=== PATIENT | female | born 1995 | race Hispanic/Latino ===

== ENCOUNTER 2023-11-11 11:51 | Emergency (ER) | payer SELFPAY ==
--- NOTE | ~2023-11-11 | US_ITS ---
EXAMINATION: US OB follow up DATE: 11/11/2023 16:19 INDICATION: Left lower quadrant pain during first trimester TECHNIQUE: Real-time ultrasound of the pelvis was performed. The interpreting radiologist was not pre sent for the study. COMPARISON: None. FINDINGS: There is a single living fetus in breech presentation. The placenta is anterior. heart rate is 148 beats per minute (bpm). The amniotic fluid volume is subjectively normal. The left ovary measure s 2.3 x 1.5 x 2.4 cm with vascular flow evident on color Doppler. The right ovary is not visualized. The following biometric data were obtained: CRL: 8.9 cm -> 14 weeks 5 days BPD: 2.7 cm -> 14 weeks 5 days Head circumference: 9.6 cm -> 14 weeks 3 days Abdominal circumference: 8.5 cm -> 14 weeks 5 days Femur length: 1.5 cm -> 14 weeks 3 days These measurements are concordant. Head circumference to abdominal circumference ratio: 1.13 (normal range 1.06-1.38). Estimated weight: 102 g (+/-) 15 g or 4 oz. (+/-) 1 oz. IMPRESSION: 1. Single living fetus in breech presentation with heart rate of 148 bpm. 2. Gestational age by ultrasound of 14 weeks 5 day(s) +/- 1 week(s) 2 day(s) with ultrasound estimate d date of delivery (NORAH) of 05/06/2024. Reviewed, dictated and finalized at location A. IMPRESSION: 1. Single living fetus in breech presentation with heart rate of 148 bpm. 2. Gestational age by ultrasound of 14 weeks 5 day(s) +/- 1 week(s) 2 day(s) wi th ultrasound estimated date of delivery (NORAH) of 05/06/2024.
[2023-11-11 12:07] VITALS: BP 111/75; PULSE 95; RESP 14; TEMP 36.6; O2SAT 98
[2023-11-11 12:30] LABS: BEDSIDEPREGUCG Positive
[2023-11-11 12:42] LABS: Basophils Percent Auto 0.2 % (0.2-1.2); Eosinophils Absolute Auto 0.1 K/mm3 (0-0.3); Eosinophils Percent Auto 0.5 % (0-4.4); Hematocrit 36.9 % (37.0-47.0); Hemoglobin 12.6 g/dL (12.0-15.0); Immature Granulocyte Absolute 0.02 K/mm3 (0.00-0.031); Immature Granulocyte Percent A 0.2 % (0-0.5); Immature Platelet Fraction Pct 6.5 % (0.9-11.2); Lymphocytes Absolute Auto 1.81 K/mm3 (0.9-3.2); Lymphocytes Percent Auto 19.2 % (18.3-44.2); Mean Corpuscular HGB Conc 34.1 g/dl (32-36); Mean Corpuscular Hemoglobin 29.9 pg (26-34); Mean Corpuscular Volume 87.4 fl (80-100); Mean Platelet Volume 10.8 fl (7.4-10.4); Monocytes Absolute Auto 0.9 K/mm3 (0.1-0.6); Monocytes Percent Auto 9.1 % (2.6-8.5); Neutrophils Absolute Auto 6.7 K/mm3 (1.3-6.7); Neutrophils Percent Auto 70.8 % (45.5-73.1); Platelet Count Result 280 k/mm3 (150-375); Red Blood Count 4.22 M/mm3 (4.2-5.4); Red Cell Distribution Width 14.4 % (11.5-14.5); White Blood Count 9.5 K/mm3 (4.5-10.0)
[2023-11-11 12:48] LABS: Bacteria Urine None Seen /hpf; Non Pathogenic Casts 0-2; RBC Urine 0-2 /hpf (0-2); Squamous Epithelial Cell Urine Occasional /hpf (Few); WBC Urine 0-5 /hpf (0-3)
[2023-11-11 12:54] LABS: Appearance Urine Clear (Clear); Bilirubin Urine Negative (Negative); Blood Urine Trace-intact (Negative); Color Urine Yellow (Yellow); Glucose Urine UA 2+ mg/dL (Negative); Ketones Urine Negative (Negative); Nitrate Urine Negative (Negative); Protein Urine Negative (Negative)
[2023-11-11 12:55] LABS: Add Urine Microscopic? NO; Leukocyte Esterase Ur Negative LEU/UL (Negative); Urobilinogen Urine 0.2 mg/dL (<2.0)
[2023-11-11 13:29] LABS: Alanine Aminotransferase 28 U/L (6-35); Alkaline Phosphatase 105 U/L (38-126); Anion Gap 10 mmol/L (4-12); Aspartate Amino Transferase 31 U/L (14-36); Bilirubin,Total 0.2 mg/dL (0.2-1.3); Blood Urea Nitrogen 3 mg/dL (7-17); Calcium 8.8 mg/dL (8.4-10.2); Carbon Dioxide 21 mmol/L (22-30); Chloride 105 mmol/L (98-107); Estimated Glomerular Filt Rate > 60; Glucose 98 mg/dL (65-110); Lipase 62 U/L (23-300); Potassium 3.2 mmol/L (3.4-5.0); Sodium 136 mmol/L (137-145)
--- NOTE | 2023-11-11 13:38 | ED.ABDPAIN ---
HPI - Abdominal Pain General Chief Complaint: Abdominal Pain Stated Complaint: left side abd pain, pain with urination Time Seen by Provider: 11/11/23 13:12 Source: patient and other (patient initially presents with son but does elect for him to step out during HPI and use functional support analyst) Mode of arrival: ambulatory Limitations: language barrier (Barbadian speaking; language intepreter intiially used Nilsa #[id number] though with significant delay/lag) History of Present Illness HPI narrative: This is a 89 (history of twins followed by a brewer after) presents with left-sided abdominal pain located at the intersection between her left upper quadrant and left lower quadrant. She notes that she has also been having some dysuria for approximately 1 month. She notes that the pain radiates to back. She tried calling the clinic where she takes her children for care though she has not yet established as a patient there but she could not be seen there today. Patient states her last menstrual period was in September and was noted to be light. She denies any other vaginal discharge or bleeding. Denies any history of sexually transmitted infection. She had previously been trialing ibuprofen. Her left elbow was this morning and she does note she has been intermittently constipated. Denies any nausea, vomiting, fevers. Last oral intake was yesterday approximately 4:00 p.m. Related Data Allergies Allergy/AdvReac Type Severity Reaction Status Date / Time No Known Allergies Allergy Verified 11/11/23 11:53 PMFSH Past Medical History Medical History History of premature delivery x2 births (one twins, one brewer) History of twin in prior Social History Social History Social History: Barbadian speaking Living arrangements: with family Exam Narrative: GENERAL: Well-appearing, well-nourished, and in no acute distress. HEAD: Normocephalic, atraumatic. EYES: Non injected, non icteric ENT: Nares clear, no rhinorrhea or epistaxis. NECK: Supple. CHEST: Speaking in full sentences. No respiratory distress. HEART: Regular rate and rhythm. . ABDOMEN: Soft, nondistended. No tenderness to palpation x4 quadrants. No rigidity or guarding. Not peritoneal. EXTREMITIES: Normal range of motion. No lower extremity edema. SKIN: Warm, dry, no rash. NEURO: No focal deficits. Alert and oriented x3. PSYCH: Normal mood and affect. Course Vital Signs Vital signs: Vital Signs Temperature 97.9 F 11/11/23 12:07 Pulse Rate 95 11/11/23 12:07 Respiratory Rate 14 11/11/23 12:07 Blood Pressure 111/75 11/11/23 12:07 Pulse Oximetry 98 11/11/23 12:07 Oxygen Delivery Room Air 11/11/23 12:07 Temperature 98.1 F 11/11/23 15:51 Pulse Rate 95 11/11/23 15:51 Respiratory Rate 14 11/11/23 12:07 Blood Pressure 133/83 11/11/23 15:51 Pulse Oximetry 100 11/11/23 15:51 Oxygen Delivery Room Air 11/11/23 12:07 MDM - Abdominal Pain MDM Narrative Medical decision making narrative: This is a 28-year-old female (previous twins followed by brewer, all premature deliveries). Who presents with left-sided abdominal pain as well as reported dysuria occurring approximately 1 month. Pain radiates to her back. In the emergency department they are afebrile with vital signs within normal limits. Patient is noted to have a positive test. She is informed of this finding via [employer] text service privately so family can not see as she had desired. Patient did not know she was although her last menstrual period had been September was reportedly light. Given uncertain status of intrauterine versus ectopic versus miscarriage, will proceed with ultrasound imaging. Hypokalemia will be repleted. No bacteria in urinalysis. US shows 2nd trimester fetus. The Engl
[2023-11-11] MEDS: POTASSIUM BICARBONATE 25 MEQ TABEF 50 MEQ PO (14:07)
[2023-11-11 15:19] LABS: Trichomonas Vag PCR NOT DETECTED (NOT DETECTE)
[2023-11-11 15:43] LABS: Chlamydia trachomatis NOT DETECTED (NOT DETECTE); Neisseria gonorrhoeae PCR NOT DETECTED (NOT DETECTE)
[2023-11-11] MEDS: ACETAMINOPHEN 500 MG TABLET 1000 MG PO (15:46)
[2023-11-11 15:51] VITALS: BP 133/83; PULSE 95; TEMP 36.7; O2SAT 100
== END 2023-11-11 17:15 | disposition home or self-care (01) ==
PROVIDERS: Emergency Provider Student in an Organized Health Care Education/Training Program
DX: O26.892 Other specified pregnancy related conditions, second trimester (principal); R10.9 Unspecified abdominal pain; Z3A.14 14 weeks gestation of pregnancy
CPT/HCPCS: 36415; 76816; 80053; 81003; 81025; 83690; 84702; 85025; 85055; 87491; 87591; 87661; 99284; A9270

== ENCOUNTER 2024-03-05 20:12 | Observation (INO) | payer OTHER, SELFPAY ==
[2024-03-05 20:31] VITALS: BP 126/82; PULSE 83
--- NOTE | 2024-03-05 20:45 | OBADM ---
This patient, Deepa Gurrola, admitted to the OB room OB Post 117 for observation. Patient/family oriented to hospital policies and general routines including ID bracelet, bed and alarms, visiting hours, pain management, procedures, bathroom and other care routines, personal items, smoking policy, room service/diet, and visiting hours. Patient/Family are encouraged to report perceived risks to care and to ask questions if they do not understand what they are told or what they should do.
[2024-03-05 21:00] VITALS: TEMP 36.1
[2024-03-05 21:02] VITALS: BP 117/74; PULSE 84
[2024-03-05 21:13] LABS: Add Urine Microscopic? YES; Appearance Urine Cloudy (Clear); Bacteria Urine None Seen /hpf; Bilirubin Urine Negative (Negative); Blood Urine Negative (Negative); Color Urine Yellow (Yellow); Glucose Urine UA Negative (Negative); Ketones Urine Negative (Negative); Leukocyte Esterase Ur 1+ LEU/UL (Negative); Nitrate Urine Negative (Negative); Non Pathogenic Casts 0-2; Protein Urine Trace mg/dL (Negative); RBC Urine 0-2 /hpf (0-2); Specific Grav Ur 1.012 (1.001-1.035); Squamous Epithelial Cell Urine Occasional /hpf (Few); Urobilinogen Urine 0.2 mg/dL (<2.0)
[2024-03-05 21:31] VITALS: BP 111/71; PULSE 82
--- NOTE | 2024-03-14 14:46 | PM.OBTRLD ---
OB - Triage/Final Diagnosis Visit Information Reason for evaluation: threatened labor Comments/Additional reasons for admission: I have assessed the risk for this patient, Deepa Gurrola, and determined that she would benefit from observation care. Evaluation Laboratory results: Laboratory Tests 03/05/24 20:59 Urine Color Yellow Urine Appearance Cloudy H Urine pH 6.0 Ur Specific [place] 1.012 Urine Protein Trace Urine Glucose (UA) Negative Urine Ketones Negative Ur Blood (Man) Negative Urine Nitrate Negative Urine Bilirubin Negative Urine Urobilinogen 0.2 Leukocyte Esterase Rfl 1+ H Urine RBC 0-2 Urine WBC 6-10 H Ur Squamous Epith Cells Occasional Urine Bacteria None seen Urine Casts 0-2
== END 2024-03-05 21:55 | disposition home or self-care (01) ==
PROVIDERS: Admitting Provider Obstetrics & Gynecology; Visit Provider Obstetrics & Gynecology
DX: O47.03 False labor before 37 completed weeks of gestation, third trimester (principal); Z3A.31 31 weeks gestation of pregnancy
CPT/HCPCS: 81001; 87086; G0378; G0379

== ENCOUNTER 2024-04-06 09:46 | Inpatient (IN) | payer OTHER, SELFPAY ==
[2024-04-06] VITALS (61 sets, daily range): BP systolic 121–157; BP diastolic 67–91; PULSE 68–92; RESP 14–16; TEMP 36.6–37.2; O2SAT 94–100; BMI 34.9
--- OUTSIDE RECORDS SUMMARY | 2024-04-06 10:56 | XMS_ITS | Clinical Summary ---
Author Organization [facility] Address [address] [place] [address] Care Team Providers Care Nitro Worker Name Role Phone Nathan Broderick Primary Care Provider [phone] Encounters Date Type Department Care Team Description 03/12/2024 10:46 AM INSPECTOR AND UNLOADER - 03/12/2024 11:59 PM INSPECTOR AND UNLOADER [facility] Ul[facility]ound [address] [place] [address] Nathan Broderick Discharge Disposition: Discharged to home or Selfcare 03/12/2024 Travel 02/28/[address] [facility] Central Scheduling [address] [place] [address] Nathan Broderick Encounter for supervision of normal in third trimester, unspecified (Primary Dx) from Last 3 Months Social History Tobacco Use Types Packs/Day Years Used Date Smoking Tobacco: Never Assessed Comments Unknown Sex and Gender Information Value Date Recorded Sex Assigned at Not on file Legal Sex Female 7:51 AM INSPECTOR AND UNLOADER Gender Identity Not on file Sexual Orientation Not on file Plan of Treatment Health Maintenance Due Date Last Done Comments Hepatitis C Virus (HCV) Screening 1993 Hepatitis B Immunization (1 of 3 - 19+ 3-dose series) 2012 Pap Smear 2014 Cervical Cancer Screening (CCS) 08/15/2023 HPV/Cotest 08/15/2023 Influenza Immunization (#1) 2023 SARS-COV-2 Immunization ( season) 2023 07/13/2020, 06/15/2020 Respiratory Syncytial Virus (RSV) Immunization (Adult) (1 - 1-dose 75+ series) 2068 TdaP Immunization Completed 02/11/2024 Meningococcal Immunization (ACWY) Aged Out No longer eligible b ased on patient's age to complete this topic Pneumococcal Immunization Combined Aged Out No longer eligible b ased on patient's age to complete this topic Rotavirus Immunization Aged Out No lo nger eligible based on patient's age to complete this topic Procedures Procedure Name Priority Date/Time Associated Diagnosis Comments US PREG UTRS> 14 WKS EA SGL FETS & MOM EVAL Routine 03/12/2024 11:43 AM INSPECTOR AND UNLOADER Encounter for supervision of normal in third trimester, unspecified from Last 3 Months Results * US PREG UTRS> 14 WKS EA SGL FETS & MOM EVAL (03/12/2024 11:43 AM INSPECTOR AND UNLOADER) Anatomical Region Laterality Modality OB N/A Ultrasound 03/16/2024 10:2 4 AM INSPECTOR AND UNLOADER Impressions 03/16/2024 10:27 AM INSPECTOR AND UNLOADER IMPRESSION: Single live intrauterine gestation estimated at 32 weeks 1 day by this ultrasound. Limited anatomic survey due to gestational age. Narrative 03/16/2024 10:27 AM INSPECTOR AND UNLOADER EXAM DESCRIPTION: ?? US PREG UTRS> 14 WKS EA SGL FETS and MOM EVAL REASON FOR STUDY: ?? survey TECHNIQUE: Complete ??transabdominal ??obstetric ultrasound was performed. COMPARISON: ?? None available FINDINGS: number: ?? single Presentation: ?? Cephalic Gestational age by this ultrasound: ?? 32 weeks 1 day , EDC ?? 05/06/2024 Clinical gestation: ?? N/A , Estimated weight: ?? 1829 g , Percentile ??27th Placenta location: ?Anterior Placenta-previa: ?? no Cervical length: ?? Long and closed ??cm heart rate: ?? 144 ??bpm Amniotic fluid index: ?? 8.3 ??cm S = Seen without gross abnormality A = Abnormal NC = Not clearly seen NS = Not seen on current exam PS = Previously seen anatomic survey: Limited due to gestational age Intracranial anatomy: ?? NS Nose/lips: ?? S Spine: ?? NC Four-chamber heart: ?? NC Diaphragm: ?? S Stomach: ?? S Kidneys: ?? S Bladder: ?? S 3-vessel cord: ?? NC cord insertion: ?? NS Upper extremities: ?? NS Lower extremities: ?? S measurements: Biparietal diameter: ?? 7.98 ??cm ( 32 weeks 1 day ) Head circumference: ?? 30.16 ??cm ( 33 weeks 4 days ) Abdominal circumference: ?? 28.31 ??cm ( 32 weeks 3 days ) Femur length: ?? 5.74 ??cm ( 30 weeks 1 day ) Ratios: FL/AC: ?? 20 ??(20-24) HC/AC: ?? 1.07 ?? THIS IS AN ELECTRONICALLY VERIFIED FINAL REPORT 03/16/2024 10:24 AM - Electronically signed by ??Kristina Major M.D. AB: AB D: ??03/16/2024 10:24 AM T: ??03/16/2024 10:24 AM Report ID: [id number] Reading Location: ??[id number] Procedure Note Kristina Major MD - 03/16/2024 EXAM DESCRIPTION: US PREG UTRS> 14 WKS EA SGL FETS and MOM EVAL REASON FOR STUDY: survey TECHNIQUE: Complete transabdominal obstetric ultrasound was performed. COMPARISON: None available FINDINGS: number: single Presentation: Cephalic Gestational age by this ultrasound: 32 weeks 1 day , EDC 05/06/2024 Clinical gestation: N/A , Estimated weight: 1829 g , Percentile 27th Placenta location: Anterior Placenta-previa: no Cervical length: Long and closed cm heart rate: 144 bpm Amniotic fluid index: 8.3 cm S = Seen without gross abnormality A = Abnormal NC = Not clearly seen NS = Not seen on current exam PS = Previously seen anatomic survey: Limited due to gestational age Intracranial anatomy: NS Nose/lips: S Spine: NC Four-chamber heart: NC Diaphragm: S Stomach: S Kidneys: S Bladder: S 3-vessel cord: NC cord insertion: NS Upper extremities: NS Lower extremities: S measurements: Biparietal diameter: 7.98 cm ( 32 weeks 1 day ) Head circumference: 30.16 cm ( 33 weeks 4 days ) Abdominal circumference: 28.31 cm ( 32 weeks 3 days ) Femur length: 5.74 cm ( 30 weeks 1 day ) Ratios: FL/AC: 20 (20-24) HC/AC: 1.07 THIS IS AN ELECTRONICALLY VERIFIED FINAL REPORT 03/16/2024 10:24 AM - Electronically signed by Kristina Major M.D. AB: AB Report ID: [id number] Reading Location: [id number] IMPRESSION: Single live intrauterine gestation estimated at 32 weeks 1 day by this ultrasound. Limited anatomic survey due to gestational age. us Nathan Broderick IMG US OB Final Result from Last 3 Months Insurance MEDICAID [place] Care Teams Nitro Worker Relationship Specialty Start Date End Date Nathan Broderick [address] [place] [address] , [address] [address] PCP - General Obstetrics & Gynecology 03/12/24
--- OUTSIDE RECORDS SUMMARY | 2024-04-06 10:56 | XMS_ITS | Continuity of Care Document ---
Author Organization [facility] Address [address] [place] [address] Phone Care Team Providers Care Associate Professor Of [employer] Name Role Phone Angie Cobian MD Unavailable Unavailable Allergies, Adverse Reactions, Alerts Substance Reaction Status Criticality No Known Allergies Active No Inform ation Medications Medication Instructions Dosage Effective Dates (start - stop) Status Comments Calcium 600 600 mg calcium (1,500 mg) tablet take 1 tablet daily - Active Depo-Provera 150 mg/mL intramuscular syringe inject 1 milliliter by intramuscular route every 3 months 150 MG - Active Procedures Procedure Date Voided Charges URINE TEST OFFICE/OUTPATIENT VISIT, EST Depo Provera 150 Mg URINE TEST OFFICE/OUTPATIENT VISIT, EST Depo Provera 150 Mg Depo Provera 150 Mg ELECTROCARDIOGRAM, COMPLETE OFFICE/OUTPATIENT VISIT, EST URINE TEST Depo Provera 150 Mg Depo Provera 150 Mg OFFICE/OUTPATIENT VISIT, EST URINE TEST OFFICE/OUTPATIENT VISIT, EST Depo Provera 150 Mg OFFICE/OUTPATIENT VISIT, EST URINE TEST Depo Provera 150 Mg OFFICE/OUTPATIENT VISIT, EST URINE TEST OFFICE/OUTPATIENT VISIT, EST Depo Provera 150 Mg Depo Provera 150 Mg URINE TEST OFFICE/OUTPATIENT VISIT, EST Depo Provera 150 Mg Depo Provera 150 Mg Depo Provera 150 Mg Depo Provera 150 Mg URINE TEST Depo Provera 150 Mg Depo Provera 150 Mg OFFICE/OUTPATIENT VISIT, EST URINE TEST Depo Provera 150 Mg Depo Provera 150 Mg OFFICE/OUTPATIENT VISIT, EST URINE TEST OFFICE/OUTPATIENT VISIT, EST Depo Provera 150 Mg Depo Provera 150 Mg HEPATIC FUNCTION PANEL ROUTINE VENIPUNCTURE URINE TEST OFFICE/OUTPATIENT VISIT, EST Depo Provera 150 Mg ROUTINE VENIPUNCTURE HEPATIC FUNCTION PANEL OFFICE/OUTPATIENT VISIT, EST Depo Provera 150 Mg HEPATIC FUNCTION PANEL ROUTINE VENIPUNCTURE URINE TEST Voided Charges Periodontal Scaling And Root Planing Four Or Mor Patient Education Patient Summary Nutrition Assessment 015 URINE TEST Visit (1) Depo Provera 150 Mg ROUTINE VENIPUNCTURE Nutrition Assessment 015 HEMOGLOBIN Health Education Health Education ROUTINE VENIPUNCTURE URINALYSIS DIPSTICK NONAUTO W/O SCOPE Ja ANTEPARTUM CARE ONLY 7+ Visits 15 Follow Up Anterpartum Psychosocial URINALYSIS DIPSTICK NONAUTO W/O SCOPE Ja HEMOGLOBIN GLUCOSE TEST, BLOOD QUANT ANTEPARTUM CARE ONLY 4 To 6 Visits Follow Up Antepartum Nutrition 15 Follow Up Anterpartum Psychosocial Antepartum Visit (8) Third Trimester Of URINALYSIS DIPSTICK NONAUTO W/O SCOPE Ja ANTEPARTUM CARE ONLY 4 To 6 Visits Follow Up Anterpartum Psychosocial URINALYSIS DIPSTICK NONAUTO W/O SCOPE De c ANTEPARTUM CARE ONLY 4 To 6 Visits Follow Up Anterpartum Psychosocial URINALYSIS DIPSTICK NONAUTO W/O SCOPE De TB INTRADERMAL TEST Initial Psychosocial 15 Min Comprehensive Oral Evaluatio n New Or Established Patient Education Bitewings Two Radiographic Images Intraoral Periapical First Radiographic Image Intraoral Periapical Each Additional Radiographic Image Patient Summary Initial Psychosocial 15 Min Initial Health Ed Assess Each 15 Min Feb URINALYSIS DIPSTICK NONAUTO W/O SCOPE De ANTEPARTUM CARE ONLY 7+ Visits 14 IMMUNIZATION ADMIN TDAP VACCINE >7 IM IMMUNIZATION ADMIN, EACH ADD FLU VACCINE 4VAL NO PRESERV 3 & > Antepartum Visit (8) Initial Psychosocial 15 Min Initial Health Ed Assess Each 15 Min Jan ROUTINE VENIPUNCTURE Follow Up Antepartum Nutrition 14 URINALYSIS DIPSTICK NONAUTO W/O SCOPE Oc Initial Health Ed Assess Each 15 Min Dec Initial Health Ed Assess Each 15 Min Dec URINALYSIS DIPSTICK NONAUTO W/O SCOPE Oc Follow Up Antep Health Ed 15 Min 2013 GLUCOSE TEST, BLOOD QUANT Follow Up Antep Health Ed 15 Min 2013 Initial Nutrition Assesment 30min Initial Psychosocial 30 Min GLUCOSE TEST, BLOOD QUANT ANTEPARTUM CARE ONLY 4 To 6 Visits Initial Antepartum Visit (1) Initial Health Education 1st 30 Min Initial Psychosocial 30 Min URINE TEST Client Orientation [facility] Advance Directives Directive Yes / No Effective Date File Name No Information Encounters Encounter Description Practice Location Reason(s) For Visit Diagnoses Date Provider Providers Copied on Encounter [facility], [address] [place] [address], [address], [place] tel: [phone] [facility] void visit (chief complaint) No Information 8 Aranza Adams. [address] [place] [address], [id number] , [place]. tel: [phone] OFFICE/OUTPA TIENT VISIT, EST [facility] [address], [address], [place] tel: [phone] [facility] DEPO (chief complaint) Encounter for surveillance of injectable contraceptive 7 Taras Logan. [address] [place] [address], [id number] , [place]. tel: [phone] Referring Provider: Angie Cobian, [address] [place] [address], [id number]. tel:[phone] OFFICE/OUTPA TIENT VISIT, EST [facility] [address], [address], [place] tel: [phone] [facility] Depo Injection (chief complaint) Encounter for surveillance of injectable contraceptive 7 Estephania Kaiser. [address] [place] [address], [id number] , [place]. tel: [phone] Referring Provider: Angie Cobian, [address] [place] [address], [id number]. tel:[phone] OFFICE/OUTPA TIENT VISIT, EST [facility] [address] [place], [address], [place] tel: [phone] [facility] Chest pain (chief complaint) Muscle strain of anterior chest wall 7 Jluisannel Michel. [address] [place], [place], [id number] . tel: [phone] OFFICE/OUTPA TIENT VISIT, EST [facility], [address] [place] [address], [address], [place] tel: [phone] [facility] depo (chief complaint) Encounter for surveillance of injectable contraceptive 7 Gunnar Hull. [address] [place], [address]. tel: [phone] OFFICE/OUTPA TIENT VISIT, EST [facility], [address] [place] [address], [address], [place] tel: [phone] [facility] depo (chief complaint) Encounter for surveillance of injectable contraceptive 7 Gunnar Hull. [address] [place], [address]. tel: [phone] Referring Provider: Angie Cobian, [address] [place] [address], [id number]. tel:[phone] OFFICE/OUTPA TIENT VISIT, EST [facility], [address] [place] [address], [address], [place] tel: [phone] [facility] PAP test (chief complaint) Encounter for surveillance of injectable contraceptivePap smear for cervical cancer screeningScreening for breast cancerNormal gynecologic examination 7 Gunnar Hull. [address] [place], [address]. tel: [phone] Referring Provider: Angie Cobian [address] [place] [address], [id number]. tel:[phone] OFFICE/OUTPA TIENT VISIT, EST [facility], [address] [place] [address], [address], [place] tel: [phone] [facility] DEPO (chief complaint) Encounter for surveillance of injectable contraceptive 7 Gunnar Hull. [address] [place], [address]. tel: [phone] Referring Provider: Angie Cobian, [address] [place], [place], [id number]. tel:[phone] OFFICE/OUTPA TIENT VISIT, EST [facility], [address] [place] [address], [address], [place] tel: [phone] [facility] DEPO (chief complaint) Encounter for surveillance of injectable contraceptive 6 Aranza Adams. [address], [place], [id number] , [place]. tel: [phone] OFFICE/OUTPA TIENT VISIT, EST [facility], [address] [place] [address], [address], [place] tel: [phone] [facility] depo (chief complaint) Encounter for surveillance of injectable contraceptive 6 Aranza Adams. [address], [place], [id number] , [place]. tel: [phone] OFFICE/OUTPA TIENT VISIT, EST [facility], [address] [place] [address], [address], [place] tel: [phone] [facility] DEPO (chief complaint) Encounter for surveillance of injectable contraceptive 6 Daguidylan Quigley. [address] [place], [address], [place]. tel: [phone] OFFICE/OUTPA TIENT VISIT, EST [facility], [address] [place] [address], [address], [place] tel: [phone] [facility] DEPO (chief complaint) Encounter for surveillance of injectable contraceptive 6 Michael Gilbert. [address] [place], [address], [place]. tel: [phone] OFFICE/OUTPA TIENT VISIT, EST [facility], [address] [place] [address], [address], [place] tel: [phone] [facility] DEPO (chief complaint) Encounter for surveillance of injectable contraceptive 5 Aranza Adams. [address] [place] [address], [id number] , [place]. tel: [phone] [facility], [address] [place] [address], [address], [place] tel: [phone] [facility] Labs (chief complaint) Nonspecific reaction to skin test w/o active tuberculosis 5 Aranza Adams. [address] [place] [address], [id number] , [place]. tel: [phone] Consulting Provider: Monson Tima, [address] [place] [address], [address]. tel: [phone] OFFICE/OUTPA TIENT VISIT, EST [facility], [address] [place] [address], [address], [place] tel: [phone] [facility] Depo (chief complaint) Contraceptive surveillance, unspecified 5 Aranza Adams. [address] [place] [address], [id number] , [place]. tel: [phone] [facility], [address] [place] [address], [address], [place] tel: [phone] [facility] labs (chief complaint) No Information 5 Aranza Adams. [address] [place] [address], [id number] , [place]. tel: [phone] Consulting Provider: [facility], [address] [place] [address], [address]. tel:[phone] OFFICE/OUTPA TIENT VISIT, EST [facility], [address] [place] [address], [address], [place] tel: [phone] [facility] depo (chief complaint) Contraceptive surveillance, unspecified 5 Aranza Adams. [address] [place] [address], [id number] , [place]. tel: [phone] [facility], [address] [place] [address], [address], [place] tel: [phone] [facility] No Information 5 Aranza Adams. [address] [place] [address], [id number] , [place]. tel: [phone] Consulting Provider: Thomas Alfred, [address] [place] [address], [address]. tel: [phone] [facility], [address] [place] [address], [address], [place] tel: [phone] [facility] Dental examination 5 Manuel Vincent. [address] [place] [address], [id number] , [place]. tel: [phone] [facility] [address], [address], [place] tel: [phone] [facility] CPSP (chief complaint) Supervision of other normal 5 Aranza Adams. [address] [place] [address], [id number] , [place]. tel: [phone] Consulting Provider: Izzy Olson, [address] [place] [address], [address]. tel: [phone] [facility], [address], [place] tel: [phone] [facility] PP check C-Sec 04/02/14 (chief complaint) Routine follow-upEncounter for counseling regarding initiation of other contraceptive measureLTBI (latent tuberculosis infection) 5 Aranza Adams. [address] [place] [address], [id number] , [place]. tel: [phone] [facility] [address], [address], [place] tel: [phone] [facility] CPSP (chief complaint) Routine follow-up 5 Aranza Adams. [address] [place] [address], [id number] , [place]. tel: [phone] Consulting Provider: Izzy Olson, [address] [place] [address], [address]. tel:[phone] [facility], [address] [place] [address], [address], [place] tel: [phone] [facility] CPSP (chief complaint) Routine follow-up 5 Aranza Adams. [address] [place] [address], [id number] , [place]. tel: [phone] Consulting Provider: Izzy Olson, [address] [place] [address], [address]. tel:[phone] [facility], [address] [place] [address], [address], [place] tel: [phone] [facility] wound check (chief complaint) Encounter for post surgical wound checkEncounter for visit 5 Gill Esterlita . [address] [place] [address], [address], [place]. tel: [phone] [facility], [address] [place] [address], [address], [place] tel: [phone] [facility] labs (chief complaint) No Information 5 Aranza Adams. [address] [place] [address], [id number] , [place]. tel: [phone] Consulting Provider: [facility], [address] [place] [address], [address]. tel:[phone] [facility], [address] [place] [address], [address], [place] tel: [phone] [facility] Proteinuria affecting , antepartum 5 Gill Esterlita . [address] [place] [address], [address], [place]. tel: [phone] [facility], [address] [place] [address], [address], [place] tel: [phone] [facility] AnemiaGlucosuria 5 Gill Esterlita . [address] [place], [address], [place]. tel: [phone] [facility], [address] [place] [address], [address], [place] tel: [phone] [facility] CPSP (chief complaint) Supervision of other normal 5 Aranza Adams. [address], [place], [id number] , [place]. tel: [phone] Consulting Provider: Izzy Olson, [address] [place] [address], [address]. tel:[phone] [facility], [address] [place] [address], [address], [place] tel: [phone] [facility] [place] [facility] Follow up (chief complaint) TOLAC (chief complaint) Supervision of other normal 5 Bernabe Weiss. [address] [place] [address], [id number] , [place]. tel: [phone] [facility], [address] [place] [address], [address], [place] tel: [phone] [facility] Previous section 4 Gill Esterlita . [address] [place], [address], [place]. tel: [phone] [facility], [address] [place] [address], [address], [place] tel: [phone] [facility] Previous sectionScreening examination for pulmonary tuberculosis 4 Gill Esterlita . [address] [place], [address], [place]. tel: [phone] [facility], [address] [place] [address], [address], [place] tel: [phone] [facility] CPSP (chief complaint) Screening examination for pulmonary tuberculosis 4 Shirrell Angie. [address], [place], [id number] , [place]. tel: [phone] Consulting Provider: Izzy Olson, [address] [place] [address], [address]. tel: [phone] [facility], [address] [place] [address], [address], [place] tel: [phone] [facility] Dental examination 4 Manuel Vincent. [address], [place], [id number] , [place]. tel: [phone] [facility], [address] [place] [address], [address], [place] tel: [phone] [facility] CPSP (chief complaint) Supervision of other normal 4 Aranza Adams. [address] [place] [address], [id number] , [place]. tel: [phone] Consulting Provider: Izzy Olson, [address] [place] [address], [address]. tel: [phone] [facility], [address] [place] [address], [address], [place] tel: [phone] [facility] Supervision of other normal pregnancyPrevious section 4 Jairo Odell . [address] [place] [address], [address], [place]. tel: [phone] [facility], [address] [place] [address], [address], [place] tel: [phone] [facility] CPSP (chief complaint) Supervision of other normal 4 Aranza Adams. [address] [place] [address], [id number] , [place]. tel: [phone] Consulting Provider: [place], [address]. tel: [phone] [facility], [address] [place] [address], [address], [place] tel: [phone] [facility] CPSP (chief complaint) Supervision of other normal Jan-0 5201 4 Aranza Adams. [address], [place], [id number] , [place]. tel: [phone] Consulting Provider: Izzy Olson, [address] [place] [address], [address]. tel:[phone] [facility], [address] [place] [address], [address], [place] tel: [phone] [facility] Supervision of other normal Dec-3 201 4 Gill Esterlita . [address] [place], [address], [place]. tel: [phone] [facility] [address], [address], [place] tel: [phone] [facility] CPSP (chief complaint) Supervision of other normal Dec- 6 4 Aranza Adams. [address], [place], [id number] , [place]. tel: [phone] Consulting Provider: Izzy Olson, [address] [place] [address], [address]. tel:[phone] [facility], [address], [place] tel: [phone] [facility] CPSP (chief complaint) Supervision of other normal Dec- 4 Aranza Adams. [address], [place], [id number] , [place]. tel: [phone] Consulting Provider: Izzy Olson [address] [place] [address], [address]. tel:[phone] [facility], [address], [place] tel: [phone] [facility] Supervision of other normal Dec-0 3-201 4 Gill Esterlita . [address] [place], [address], [place]. tel: [phone] [facility], [address] [place] [address], [address], [place] tel: [phone] [facility] CPSP (chief complaint) Supervision of other normal 4 Aranza Adams. [address] [place] [address], [id number] , [place]. tel: [phone] Consulting Provider: Swathirely Eric [address] [place] [address], [address]. tel: [phone] [facility], [address] [place] [address], [address], [place] tel: [phone] [facility] Initial Assesment (chief complaint) Supervision of other normal 4 Aranza Adams. [address] [place] [address], [id number] , [place]. tel: [phone] Consulting Provider: Khanh Reyes [address] [place] [address], [address]. tel: [phone] [facility], [address] [place] [address], [address], [place] tel: [phone] [facility] Renal glucosuriaPrenatal care in first trimesterLarge for dates Nov-0 4 Jairo Odell . [address] [place], [address], [place]. tel: [phone] [facility], [address] [place] [address], [address], [place] tel: [phone] [facility] Supervision of other normal 4 Aranza Adams. [address], [place], [id number] , [place]. tel: [phone] Consulting Provider: Carlene Zelaya, [address] [place], [address]. tel: [phone] [facility], [address] [place] [address], [address], [place] tel: [phone] [facility] Supervision of other normal 4 Aranza Adams. [address], [place], [id number] , . tel:[phone] Consulting Provider: Carlene Zelaya, [address] [facility], [place], [address]. tel:[phone] Family History Family Member Type Diagnosis Age At Onset No Information Immunizations Vaccine Date Status Comments INFLUENZA VACCINE 6 mths and older refused Source: New Immuniza tion Record flu (split) preservative billy e, 3 yrs or older administered Source: New Immuniza tion Record Tdap administered Note: Advised t o wait 20 min after vaccine ; Source: New Immunization Record Payers Payer name Insurance type Covered democrat ID Authoriza tion(s) Family Pact [id number] [facility] [id number] [facility] [id number] Social History Type Description Quantity Date Captured Comments Alcohol Use Details Unknown Caffeine Use Details Unknown Tobacco Use Status No Information Smoking Status No Information Sex Female Chief Complaint And Reason For Visit From encounter dated '05/30/2017 15:30'. void visit (chief complaint). Description: pt does not want to continue depo shot or any other BC method . She states she wants to get . Pt has other concerns not covered with SOFP she will make appt later Plan Of Treatment Date Type Action Status Goal PPD/PPD Screening. Due on due Goal PAP. Due on due Goal TSH. Due on due Goal TSH. Due on due Goal PAP. Due on due Goal Influenza vaccine. Due on due Goal PAP. Due on due Goal HPV (1st). Due on 6 due Goal TSH. Due on due Goal Tobacco cessation counseling completed Goal Tobacco cessation counseling completed Referral Ordered: OB US, LIMITED, FETUS(S) ordered Referral Ordered: Referrals: Obstetrics. Evaluate and treat ordered Referral Ordered: Referrals: Dentistry. Location: [facility] Appointment date/timeframe: 02/17/2014 ordered Referral Ordered: Referrals: Diagnostic Radiology. Diagnostic testing Appointment date/timeframe: 11/15/2013 ordered Future Order: Lab Order Hepatic Function Panel ([id number]), Scheduled for: Ordered Future Order: Lab Order Hepatic Function Panel ([id number]), Scheduled for: Ordered History Of Present Illness Encounter Date Complaint History Of Prese nt Illness void visit pt does not want to continue depo shot or any other BC method . She states she wants to get . Pt has other concerns not covered with SOFP she will make appt later DEPO DEPO (comments) Patient advised to begin taking calcium suplement. Has been on depo for 3 years Depo Injection Chest pain The patient pres ents with a complaint of Chest pain. The symptoms began 1 week ago and began suddenly. The patient denies dyspnea, fatigue, nausea and palpitations. Relevant history for this patient excludes excessive alcohol, diabetes, drug use, family history of coronary artery disease, hyperlipidemia or hypertension. The symptoms are aggravated by exertion. 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 States she did not want to go to the ER because it is too expensive. Pt is alert and verbally responsive, no SOb noted, she denies numbness, weakness, or dizziness. depo Patient is here for depo injection she is satisfied with this as her control. depo Patient is here for DEPO injection sheis satisfied with this form of control and has no concerns. PAP test : 2. Caroline ty: Term: 1. Pre-Term: 1. Livin. The patient states she uses Depo-Provera? for control. Her menses is absent. Pertinent negatives include anxiety and depression. Diet 2000 calorie.The patient states her exercise level is moderate and frequency is 2-3 times/week. She has not been exposed to passive smoke. She does not drink alcohol. DEPO DEPO Here today for D epo Provera injection. Feels well with no c/o side effects or other concerns and would like to continue to use. depo Here today for D epo Provera injection. Feels well with no c/o side effects or other concerns and would like to continue to use. DEPO (comments) patient had had a depo shot prior and no complications DEPO DEPO DEPO Here today for D epo Provera injection. Feels well with no c/o side effects or other concerns and would like to continue to use. Just finishing 6 months of INH Labs Depo Here today for D epo Provera injection. Feels well with no c/o side effects or other concerns and would like to continue to use. No pap ever yet labs depo Here today for D epo Provera injection. Feels well with no c/o side effects or other concerns and would like to continue to use. Taking INH and B6 without SE - feels well. No TB s/sx CPSP Breast Pump retu rned already received one in the hospital. PP check C-Sec 04/02/14 S/P C/S 04/02/14. Overall feels well today and is recovering well from delivery. BF'ing and FF'ing. No breast, bowel, bladder problems. No lochia or menses. Has had sex - used condom. Desires Depo for BC. Has used before without problems. No c/o PP depression symptoms. Hgb 13.7 04/27/14. CXR negative ths . No TB s/sx CPSP PPUDSPost [facility] C[facility]P [facility] wound check labs [facility] Baby Basics OB Follow up 18 y/o here for OB follow up G 2 P2. Would like to know if can have vaginal delivery. TOLAC Risks, benefits, and alternatives for TOLAC vs. repeat delivery were discussed with the patient: The risks of either approach include maternal hemorrhage, infection, operative injury, thromboembolism, hysterectomy, and . Uterine rupture or dehiscence is the outcome associated with TOLAC that most significantly increases the chance of additional maternal and morbidity. However, has several potential health advantages, which include avoiding major abdominal surgery, resulting in lower rates of hemorrhage, infection, and a shorter recovery period compared with elective repeat delivery. Additionally, for those considering larger families, may avoid potential future maternal consequences of multiple deliveries such as hysterectomy, bowel or bladder injury, transfusion, infection, and abnormal placentation such as placenta previa and placenta accreta. Patient understands that is associated with fewer complications, and a failed TOLAC is associated with more complications, than elective repeat delivery. [facility] Labor and Delive ry Video/handouts 20 minReviewed GDM questions 10 min [facility] Family Planning handout/discussion Called SDI for pt [facility] SDIcalled NORAH fo r pt was on the phone for over 20 min [facility] 2 HOur,cbc lab/ Car seat Video and handouts on car seat safety [facility] HOSPITAL DISABILITY [facility] Breast Feeding V ideo/Handouts [facility] growth and conception, danger signs, Anatomy and physiology of Initial Assesment Psychosocial a nd Nutrition Assesment, 24 Hour recall, wt grid, diet, exercise, mood changes Instructions Date Instruction Additional Infor nehal Follow up 12 weeks B ack up method situations education discussed, condom use discussedSTD prevention education and symptoms of STD discussedEmeregncy contraceptive education discussedTake control as prescribed advised with catch up education provided. The risks, benefits and side effects of treatment were discussed with the patient. Related to Encounter for surveillance of injectable contraceptive Use NSAID and muscle relaxantAvoid heavy liftingER for CP accompanied with SOB, dyspnea, numbness and or tingling sensation Related to Muscle strain of anterior chest wall maintain healthy weight Related to Encounter for surveillance of injectable contraceptive increase physical activity Relat ed to Encounter for surveillance of injectable contraceptive Perform monthly self breast examinations. Related to Screening for breast cancer Increase physical activity. Rela timo to Screening for breast cancer Perform monthly self breast examinations. Related to Pap smear for cervical cancer screening Increase physical activity. Rela timo to Pap smear for cervical cancer screening Reviewed precautions and BU method and when to RTC Related to Encounter for surveillance of injectable contraceptive follow up in 12 weeks Related to Encounter for surveillance of injectable contraceptive Reviewed precautions and BU method and when to RTC Related to Encounter for surveillance of contraceptives, unspecified follow up in 12 weeks Related to Encounter for surveillance of contraceptives, unspecified Reviewed precautions and BU method and when to RTC Related to Encounter for surveillance of injectable contraceptive follow up in 12 weeks Related to Encounter for surveillance of injectable contraceptive Reviewed precautions and BU method and when to RTC Related to Contraceptive surveillance, unspecified follow up in 12 weeks Related to Contraceptive surveillance, unspecified Reviewed precautions and BU method and when to RTC Related to Contraceptive surveillance, unspecified follow up in 12 weeks Related to Contraceptive surveillance, unspecified Reviewed precautions and BU method and when to RTC Related to Encounter for counseling regarding initiation of other contraceptive measure post CS wound- heali ng wellRTC in 4 weeks for routine PP visit Related to Encounter for post surgical wound check anesthesia / analgesia plans labor signs education (n ewborn screening, jaundice, SIDS, car seat) labor and delivery video/handout s influenza vaccine counseling family planning discussion/hando ut smoking counseling domestic violence breast or bottle feeding influenza vaccine family medical leave or disability forms Breast Feeding Video/Handouts domestic violence smoking counseling smoking counseling domestic violence seat belt use I.A. Psychosocial an d Nutrition, wic form nutrition and weight gain counseling, special diet toxoplasmosis precau tions (cats / raw meat) sexual activity indications for ultrasound travel RBS= 109AIC= 5.4 OGT = WNL will continue to monitorLow carb diet choices discussed Related to Renal glucosuria illicit / recreational drugs alcohol tobacco (ask, advise , assess, assist and arrange) environmental / work hazards exercise HIV and other routine t ests use of any medicatio ns (including supplements, vitamins, herbs, OTC drugs) [facility] 30min anticipated course of c are risk factors identif ied by history Assessments Type Assessment Date No Information
[2024-04-06] MEDS: ACETAMINOPHEN 500 MG TABLET 1000 MG PO (11:18)
[2024-04-06 11:21] LABS: Basophils Percent Auto 0.5 % (0.2-1.2); Eosinophils Percent Auto 0.3 % (0-4.4); Hematocrit 38.4 % (37.0-47.0); Immature Granulocyte Absolute 0.05 K/mm3 (0.00-0.031); Immature Granulocyte Percent A 0.8 % (0-0.5); Lymphocytes Absolute Auto 1.55 K/mm3 (0.9-3.2); Lymphocytes Percent Auto 23.6 % (18.3-44.2); Mean Corpuscular HGB Conc 33.9 g/dl (32-36); Mean Corpuscular Hemoglobin 30.2 pg (26-34); Mean Corpuscular Volume 89.1 fl (80-100); Mean Platelet Volume 11.2 fl (7.4-10.4); Monocytes Absolute Auto 0.5 K/mm3 (0.1-0.6); Monocytes Percent Auto 7.8 % (2.6-8.5); Neutrophils Absolute Auto 4.4 K/mm3 (1.3-6.7); Platelet Count Result 202 k/mm3 (150-375); Red Blood Count 4.31 M/mm3 (4.2-5.4); Red Cell Distribution Width 17.2 % (11.5-14.5); White Blood Count 6.6 K/mm3 (4.5-10.0)
[2024-04-06] MEDS: AZITHROMYCIN 500 MG/NS 250 ML 500 MG/250 ML BAG 250 MG IVPB (11:27)
[2024-04-06 11:30] LABS: Alanine Aminotransferase 38 U/L (6-35); Albumin Level 3.2 g/dL (3.5-5.1); Alkaline Phosphatase 291 U/L (38-126); Anion Gap 10 mmol/L (4-12); Aspartate Amino Transferase 41 U/L (14-36); Bilirubin,Total 0.4 mg/dL (0.2-1.3); Blood Urea Nitrogen 10 mg/dL (7-17); Calcium 8.1 mg/dL (8.4-10.2); Carbon Dioxide 19 mmol/L (22-30); Chloride 106 mmol/L (98-107); Estimated CRCL calculation 168 ml/min; Estimated Glomerular Filt Rate > 60; Glucose 80 mg/dL (65-110); Sodium 135 mmol/L (137-145)
[2024-04-06] MEDS: LACTATED RINGERS 1,000 ML 125 ML IV CONT ×2 (11:31→12:58)
--- NOTE | 2024-04-06 11:41 | LDADM ---
This patient, Deepa Gurrola, was admitted to Labor/Delivery/Recovery 119 on 04/06/24 at 10:57. Plans for section, pain management and were discussed with patient. Patient/family oriented to hospital policies and general routines including ID bracelet, bed and alarms, visiting hours, pain management, procedures, bathroom and other care routines, personal items, smoking policy, room service/diet and guest tray routines, infant security routines, and visiting hours. Patient/Family are encouraged to report perceived risks to care and to ask questions if they do not understand what they are told or what they should do. See OBIX for further documentation.
--- NOTE | 2024-04-06 11:43 | PM.IMHP ---
H&P: HPI History of Present Illness Date/Time: 04/06/24 11:43 Chief Complaint: Azael hinton Narrative: 28 y/o at 35 5/7 weeks who receives care at an outside facility. Her provider apparently does not have privileges to deliver at a hospital, and there was no plan in place for delivery. The patient is surprised by this. She has GDM, apparently diet controlled. Records do not comment on her glycemic control, but she says she has not required medication. GBS unknown. Prior of twins at 35 weeks, subsequent at 36 weeks. otherwise uncomplicated. Turkish speaking, communication through online pulling machine operator service. Review of Systems Review of Systems: All systems reviewed & are unremarkable except as noted in HPI and below PMFSH Past Medical History Medical History (Updated 04/06/24 @ 12:05 by Chase Winston MD) History of premature delivery x2 births (one twins, one brewer) History of twin in prior Surgical History Surgical History (Updated 04/06/24 @ 12:05 by Chase Winston MD) History of delivery x2 Social History Social History Social History: Turkish speaking Living arrangements: with family Meds Home Medications and Allergies Home Medications ?Medication ?Instructions ?Recorded ?Confirmed ?Type acetaminophen 500 mg capsule 1,000 mg (2 x 500 mg) PO Q6H PRN 11/11/23 04/06/24 Rx pain #30 caps docusate sodium 100 mg capsule 100 mg PO DAILY PRN constipation 11/11/23 04/06/24 Rx (Colace) #14 caps vitamin-ferrous fumarate 1 tablet PO DAILY #30 tabs 11/11/23 04/06/24 Rx 28 mg iron-folic acid 800 mcg tablet ( Vitamins with Minerals) Allergies Allergy/AdvReac Type Severity Reaction Status Date / Time No Known Allergies Allergy Verified 03/05/24 20:49 Vital Signs Vital Signs - 24 hr 04/06/24 10:30 04/06/24 10:46 Pulse Rate 84 84 Blood Pressure 157/90 H 135/83 Exam Const: Orientation/consciousness: patient oriented x3 Other: Well-developed, well-nourished female in no acute distress. Neck: Thyroid: thyroid normal Lymphatic: no lymphadenopathy noted (in neck, axilla or inguinal nodes) Resp: Effort & Inspection: normal respiratory effort Auscultation: clear to auscultation bilaterally Cardio: Rate: regular rate Rhythm: regular rhythm Heart sounds: S1 normal heart sound present and S2 normal heart sound present GI: Other: ABD: Soft, nontender, nondistended, gravid. NST reactive. TOCO: rare contractions. No guarding or rebound tenderness. No hepatosplenomegaly. : General: Yes no CVA tenderness Other: Cervix closed, thick per RN. RomPlus positive. Back/Spine/Pelvis: Back: no CVA tenderness Skin: General skin exam: normal color and no rashes or lesions noted Neuro: General: patient oriented x3 Extrem: Other: Extremities: nontender with no edema Psych: Mental Status: mental status grossly normal Affect: normal affect H&P: Results Labs Labs: Short CBC 04/06/24 Range/Units 11:12 WBC 6.6 (4.5-10.0) K/mm3 Hgb 13.0 (12.0-15.0) g/dL Hct 38.4 (37.0-47.0) % Plt Count 202 (150-375) k/mm3 BMP 04/06/24 11:12 Sodium 135 L Potassium 4.0 Chloride 106 Carbon Dioxide 19 L BUN 10 D Creatinine 0.37 L Glucose 80 Calcium 8.1 L Liver Function 04/06/24 Range/Units 11:12 Total Bilirubin 0.4 (0.2-1.3) mg/dL AST 41 H (14-36) U/L ALT 38 H (6-35) U/L Alkaline Phosphatase 291 H (38-126) U/L Albumin 3.2 L (3.5-5.1) g/dL Assessment and Plan Assessment and plan (1) PROM (premature rupture of membranes): Code(s): O42.90 - Premature rupture of membranes, unspecified as to length of time between rupture and onset of labor, unspecified weeks of gestation Status: Acute Assessment and Plan: A: IUP at 35 5/7 weeks with prior x 2, A1DM, adequate care at an outside facility, and PROM. P: Offered repeat . She understands risks of surgery to include risks of anesthesia, risks of pain, infection, bleeding, blood products, thromboembolic phenomena and damage to adjacent structures such as bowel, bladder, ureters, blood vessels and nerves. She understands all these risks and elects to proceed with surgery. (2) History of delivery: Code(s): Z98.891 - History of uterine scar from previous surgery Status: Acute (3) Gestational diabetes mellitus (GDM) affecting third : Code(s): O24.419 - Gestational diabetes mellitus in , unspecified control Status: Acute
--- NOTE | 2024-04-06 12:07 | WPDHPUPDATE1 ---
History and Physical Update Update Date/Time: 04/06/24 12:07 History and Physical has been reviewed, including an updated exam of the patient. There are NO changes in the patient's condition. Risks, benefits, and alternatives have been discussed and questions answered. Patient agrees to proceed with procedure.
[2024-04-06 12:08] LABS: Rapid Plasma Reagin Non-Reactive (NonReactive)
[2024-04-06 12:11] LABS: HIV 1/2 Ab P24 Ag Result Negative (Negative)
[2024-04-06 12:27] LABS: Creatinine Urine 79.7 mg/dL
[2024-04-06 12:36] LABS: Total Protein Urine Random 420 mg/dL; Ur Ttl Prot Creatinine Ratio 5.27 mg/mg (0-0.20)
[2024-04-06 12:50] LABS: Uric Acid 5.8 mg/dL (2.5-7.5)
--- NOTE | 2024-04-06 13:05 | WPDANESEPPF ---
Anes - Initial Pre Proc Eval Date/Time: 04/06/24 13:05 Surgeon: Chase Winston MD Pre Op Diagnosis: LEAKING Patient Data Age: 28 Gender: F Height: 1.52 m Weight: 81 kg Last Vital Signs Pulse 84 04/06/24 10:46 BP 135/83 04/06/24 10:46 O2 Del Method Room Air 04/06/24 11:33 Allergies Allergy/AdvReac Type Severity Reaction Status Date / Time No Known Allergies Allergy Verified 03/05/24 20:49 Home Medications ?Medication ?Instructions ?Recorded ?Confirmed ?Type acetaminophen 500 mg capsule 1,000 mg (2 x 500 mg) PO Q6H PRN 11/11/23 04/06/24 Rx pain #30 caps docusate sodium 100 mg capsule 100 mg PO DAILY PRN constipation 11/11/23 04/06/24 Rx (Colace) #14 caps vitamin-ferrous fumarate 1 tablet PO DAILY #30 tabs 11/11/23 04/06/24 Rx 28 mg iron-folic acid 800 mcg tablet ( Vitamins with Minerals) Laboratory Tests 04/06/24 04/06/24 11:12 12:10 WBC 6.6 K/mm3 (4.5-10.0) RBC 4.31 M/mm3 (4.2-5.4) Hgb 13.0 g/dL (12.0-15.0) Hct 38.4 % (37.0-47.0) MCV 89.1 fl (80-100) MCH 30.2 pg (26-34) MCHC 33.9 g/dl (32-36) RDW 17.2 H % (11.5-14.5) Plt Count 202 k/mm3 (150-375) MPV 11.2 H fl (7.4-10.4) Immature Gran % (Auto) 0.8 H % (0-0.5) Neut % (Auto) 67.0 % (45.5-73.1) Lymph % (Auto) 23.6 % (18.3-44.2) [place] % (Auto) 7.8 % (2.6-8.5) Eos % (Auto) 0.3 % (0-4.4) Baso % (Auto) 0.5 % (0.2-1.2) Lymph # (Auto) 1.55 K/mm3 (0.9-3.2) [place] # (Auto) 0.5 K/mm3 (0.1-0.6) Eos # (Auto) 0.0 K/mm3 (0-0.3) Baso # (Auto) 0.0 K/mm3 (0.0-0.1) Abs Immat Gran (auto) 0.05 H K/mm3 (0.00-0.031) Absolute Neuts (auto) 4.4 K/mm3 (1.3-6.7) Absolute Nucleated RBC 0.000 K/mm3 (0.0-0.012) Nucleated RBC % 0.0 % (0.0-0.2) Sodium 135 L mmol/L (137-145) Potassium 4.0 mmol/L (3.4-5.0) Chloride 106 mmol/L (98-107) Carbon Dioxide 19 L mmol/L (22-30) Anion Gap 10 mmol/L (4-12) BUN 10 D mg/dL (7-17) Creatinine 0.37 L mg/dL (0.7-1.0) Estim Creat Clear Calc 168 ml/min Estimated GFR > 60 (59 - ) Glucose 80 mg/dL (65-110) Uric Acid 5.8 mg/dL (2.5-7.5) Calcium 8.1 L mg/dL (8.4-10.2) Total Bilirubin 0.4 mg/dL (0.2-1.3) AST 41 H U/L (14-36) ALT 38 H U/L (6-35) Alkaline Phosphatase 291 H U/L (38-126) Total Protein 7.0 g/dL (6.3-8.2) Albumin 3.2 L g/dL (3.5-5.1) U Random Total Protein 420 mg/dL Urine Creatinine 79.7 mg/dL Protein/Creat Ratio 2 5.27 H mg/mg (0-0.20) RPR Non-reactive (NonReactive) HIV 1&2 Ab/P24 Ag 4thGn Negative (Negative) Blood Type O Positive Antibody Screen Negative Patient hx anesthesia problems: none Family hx anesthesia problems: none Results Review: All pre-operative results and documents have been reviewed as part of the pre-operative evaluation. [facility] Past Medical History Medical History Diabetes Preeclampsia History of premature delivery x2 births (one twins, one brewer) History of twin in prior Surgical History Surgical History History of delivery x2 Social History Social History Social History: Iraqi speaking Smoking status: Never smoker Substance use: never Do You Feel Safe in your Home?: Yes Lack of Transportation: No Lack of Food: Sometimes True Current Housing: I Have Housing Concerned About Future Housing: No Difficulty Paying Gas/Electric Bills: No Difficulty Paying for Meds: No Currently Unemployed: YES Education: Grade School Difficulty w/ Childcare or Family Care: No Living arrangements: with family Spiritual care concerns: No Anes - Eval Final PreProcedure Day of Procedure 04/06/24 13:05 Patient weight: obese Heart: regular rate and rhythm Lungs: clear to auscultation Airway: Mallampati scale class III Neurological: alert and oriented Last oral intake: >/= 8 hours ASA classification: III Emergent: no Anesthetic plan: proceed Anesthesia type and monitoring: regional spinal and standard monitoring Results Review: All pre-operative results and documents have been reviewed as part of the pre-operative evaluation. Informed Consent: The patient's anesthetic plan and its attendant risks and benefits were discussed with the patient/family/POA. Questions were solicited and answers provided to the satisfaction of the patient/family/POA.
[2024-04-06] MEDS: ONDANSETRON INJ 4 MG/2 ML VIAL IV PUSH (13:10)
[2024-04-06] MEDS: FAMOTIDINE 20 MG/2 ML VIAL IV PUSH (13:10)
[2024-04-06] MEDS: ceFAZolin 2 GM/D5W 50 ML 2 GM/50 ML BAG IVPB (13:29)
--- NOTE | 2024-04-06 14:43 | P.PCNOB_ITS ---
OB - Delivery Note Procedure Delivery date: 04/06/24 Pre-op diagnosis: Gestational Diabetes, Positive Group B Strep (GBS), Premature Rupture of Membranes and Previous Delivery Post-op Diagnosis: Same Delivery monitor: External FHT and External Uterine Procedure Performed: Repeat Surgeon: Chase Winston MD Anesthesia type: Spinal Description of Procedure/Findings: Findings: Omentum adherent to the anterior abdominal wall and uterine serosa. Otherwise, unremarkable uterus, tubes and ovaries. Techniques: The patient was taken to the operating room where she was prepared and draped in the usual sterile fashion in dorsal supine position with a leftward tilt. She received cefazolin and azithromycin preoperatively. Spinal anesthesia was found to be adequate. A Pfannenstiel skin incision was made along the previous scar line and was carried through to the underlying layer of the fascia. The fascia was incised in the midline and the incision was extended laterally. The fascia was dissected free of the underlying rectus muscles. The rectus muscles were in the midline. The peritoneum was identified, tented up and entered sharply. The peritoneal incision was extended superiorly and inferiorly with good visualization of the bladder. The bladder blade was placed. The vesicouterine peritoneum was identified, tented up and entered sharply. The incision was extended laterally and the bladder flap was developed. The bladder blade was replaced. The uterus was then incised sharply in a transverse fashion along the lower uterine segment. The incision was extended laterally. The infant's head was delivered atraumatically to the sterile field, followed by the body. The nose and mouth were bulb suctioned. After a delay, the cord was clamped and cut. The was handed off the field. Cord blood was collected. The placenta was removed manually and was passed off the field. The uterus was exteriorized and cleared of all clots and debris. The uterine incision was reapproximated using 0 Monocryl in a running, locked fashion. Excellent hemostasis resulted as did excellent reapproximation of the normal anatomy. The uterus was returned the abdomen. The pelvis was irrigated copiously with warmed normal saline. The bladder flap was treated with Surgicel powder. Rigorous hemostasis was assured. The fascial layer was reapproximated using 0 Vicryl in a running fashion. The skin was closed with a running, subcuticular stitch of 4 0 Vicryl. Dermaflex was applied externally. Sponge, lap, needle and instrument counts were correct. The patient was taken to the recovery room in stable condition. The infant went to the nursery in stable condition. I was present and scrubbed the entire procedure. Specimen: Yes (cord blood, placenta) Estimated Blood Loss: 305 Drains: Yes (Mcmahon) Packing: No Pathology: Yes (Placenta) Complications: None Condition: Stable Disposition: PACU [place] Baby Date of : 04/06/24 Time of : 14:07 Gestational Age by Date: 33 gender: Male Weight (pounds): 5 Weight (ounces): 0 presentation: vertex Placenta delivery description: Manual Removal and Normal Configuration Cord Vessel Description: 3 Vessels and Delayed Cord Clamping score one minute: 8 score five minutes: 9
--- NOTE | 2024-04-06 14:46 | P.DS_ITS ---
DS: Admitting Diagnosis Discharge Date 04/10/24 Admitting Diagnosis IUP at 35 5/7 weeks Prior PROM Gestational diabetes GBS bacteruria DS: Discharge Diagnosis Discharge Diagnosis (1) delivery delivered: Code(s): O82 - Encounter for delivery without indication Status: Acute OB - DS: Summary OB Procedures : None OB Procedures Intrapartum: OB Procedures: : None Time Spent with Patient Time attestation: Total time spent providing and/or coordinating discharge services: DS: Data Data Completed and Pending Labs on day of discharge: Labs from last 24 hours 04/06/24 04/06/24 12:10 11:12 WBC 6.6 RBC 4.31 Hgb 13.0 Hct 38.4 MCV 89.1 MCH 30.2 MCHC 33.9 RDW 17.2 H Plt Count 202 MPV 11.2 H Immature Gran % (Auto) 0.8 H Neut % (Auto) 67.0 Lymph % (Auto) 23.6 [place] % (Auto) 7.8 Eos % (Auto) 0.3 Baso % (Auto) 0.5 Lymph # (Auto) 1.55 [place] # (Auto) 0.5 Eos # (Auto) 0.0 Baso # (Auto) 0.0 Abs Immat Gran (auto) 0.05 H Absolute Neuts (auto) 4.4 Absolute Nucleated RBC 0.000 Nucleated RBC % 0.0 Sodium 135 L Potassium 4.0 Chloride 106 Carbon Dioxide 19 L Anion Gap 10 BUN 10 D Creatinine 0.37 L Estim Creat Clear Calc 168 Estimated GFR > 60 Glucose 80 Uric Acid 5.8 Calcium 8.1 L Total Bilirubin 0.4 AST 41 H ALT 38 H Alkaline Phosphatase 291 H Total Protein 7.0 Albumin 3.2 L U Random Total Protein 420 Urine Creatinine 79.7 Protein/Creat Ratio 2 5.27 H RPR Non-reactive HIV 1&2 Ab/P24 Ag 4thGn Negative Blood Type O Positive Antibody Screen Negative Discharge Plan Discharge Attending physician on discharge: Chase Winston Discharging Clinician: Chase Winston Patient Disposition: Home, Self-Care Activity: may shower, may drive after 2 weeks and pelvic rest Diet: regular Wound Care Instructions: incision open to air Discharge Instructions: Call or return if temperature above 100.4? F, increased abdominal pain, increased vaginal bleeding or any new problems. Patient Language: Indonesian Stand Alone Forms: General Discharge Information Follow-up/Referrals: Chase Winston MD [Physician] - 4 Weeks Discharge Medications: New hydrocodone-acetaminophen 5-325 mg tablet 1 - 2 tablet PO Q6H PRN (Reason: pain) Qty: 30 0RF ibuprofen 600 mg tablet 600 mg PO Q6H PRN (Reason: cramps) Qty: 30 0RF ferrous sulfate 325 mg (65 mg iron) tablet 325 mg PO DAILY Qty: 30 0RF Continued acetaminophen 500 mg capsule 1,000 mg PO Q6H PRN (Reason: pain) Qty: 30 0RF vit-iron fum-folic ac [ Vitamin with Minerals] 28 mg iron- 800 mcg tablet 1 tablet PO DAILY Qty: 30 0RF docusate sodium [Colace] 100 mg capsule 100 mg PO DAILY PRN (Reason: constipation) Qty: 14 0RF Date of admission: 04/06/24 10:57 Primary Care Provider: PHYSICIAN,COMPENSATION ANALYST Admitting Provider: Chase Winston Attending physician on admission: Chase Winston Condition: Stable
[2024-04-06] MEDS: OXYTOCIN 30 UNITS/NS 500 ML 30 UNITS/500 ML BAG 125 UNITS IV CONT (15:20)
[2024-04-06] MEDS: MORPHINE SULFATE INJ (*CRX) 10 MG/ML AMP 3 MG IV PUSH (15:32)
[2024-04-06] MEDS: LIDOCAINE 5% PATCH 1 PATCH TRANSDERM (15:55)
[2024-04-06 16:09] LABS: OBXCEM ROM Plus Positive (Negative)
[2024-04-06] MEDS: ACETAMINOPHEN 325 MG TABLET 650 MG PO (17:24)
[2024-04-06] MEDS: SIMETHICONE 80 MG TAB.CHEW PO (17:24)
[2024-04-06] MEDS: HYDROCORTISONE SODIUM SUCCINATE 100 MG/2 ML VIAL IV PUSH (17:25)
[2024-04-06] MEDS: DOCUSATE SODIUM 100 MG CAPSULE PO (17:26)
[2024-04-06] MEDS: KETOROLAC 15 MG/ML VIAL (*BKC) IV PUSH (17:27)
[2024-04-06] MEDS: diphenhydrAMINE HCl INJ 50 MG/ML VIAL 25 MG IV PUSH (17:41)
--- NOTE | 2024-04-06 18:37 | OBPPTRN ---
Patient transferred to post room #[id number] ( stretcher). Support person present. Oriented to unit, room, information board, rooming in, admission packet and security measures. Patient verbalizes understanding.
[2024-04-07] MEDS: ACETAMINOPHEN 325 MG TABLET 650 MG PO ×4 (00:32→19:47)
[2024-04-07] MEDS: KETOROLAC 15 MG/ML VIAL (*BKC) IV PUSH ×3 (00:35→13:28)
[2024-04-07 00:38] VITALS: BP 116/76; PULSE 84; RESP 16; TEMP 37.6; O2SAT 95
[2024-04-07] MEDS: KCL 20 MEQ/D5/0.45% SOD CHL 1,000 ML 125 ML IV CONT (03:08)
[2024-04-07] MEDS: FUROSEMIDE INJ 40 MG/4 ML VIAL 20 MG IV PUSH (03:46)
[2024-04-07] MEDS: SODIUM CHLORIDE 0.9% IV 500 ML IV CONT (03:47)
[2024-04-07 05:05] VITALS: BP 114/77; PULSE 77; RESP 16; TEMP 36.7; O2SAT 96
[2024-04-07 05:48] LABS: Basophils Percent Auto 0.2 % (0.2-1.2); Hematocrit 29.5 % (37.0-47.0); Hemoglobin 9.8 g/dL (12.0-15.0); Immature Granulocyte Absolute 0.03 K/mm3 (0.00-0.031); Immature Granulocyte Percent A 0.3 % (0-0.5); Lymphocytes Absolute Auto 2.08 K/mm3 (0.9-3.2); Lymphocytes Percent Auto 21.5 % (18.3-44.2); Mean Corpuscular HGB Conc 33.2 g/dl (32-36); Mean Corpuscular Hemoglobin 30.1 pg (26-34); Mean Corpuscular Volume 90.5 fl (80-100); Mean Platelet Volume 11.9 fl (7.4-10.4); Monocytes Absolute Auto 0.8 K/mm3 (0.1-0.6); Monocytes Percent Auto 7.7 % (2.6-8.5); Neutrophils Absolute Auto 6.8 K/mm3 (1.3-6.7); Neutrophils Percent Auto 70.3 % (45.5-73.1); Platelet Count Result 167 k/mm3 (150-375); Red Blood Count 3.26 M/mm3 (4.2-5.4); Red Cell Distribution Width 17.2 % (11.5-14.5); White Blood Count 9.7 K/mm3 (4.5-10.0)
[2024-04-07 05:58] LABS: Alanine Aminotransferase 37 U/L (6-35); Albumin Level 2.3 g/dL (3.5-5.1); Alkaline Phosphatase 189 U/L (38-126); Anion Gap 6 mmol/L (4-12); Aspartate Amino Transferase 50 U/L (14-36); Bilirubin,Total 0.4 mg/dL (0.2-1.3); Blood Urea Nitrogen 12 mg/dL (7-17); Carbon Dioxide 21 mmol/L (22-30); Chloride 105 mmol/L (98-107); Estimated CRCL calculation 142 ml/min; Estimated Glomerular Filt Rate > 60; Glucose 83 mg/dL (65-110); Potassium 3.7 mmol/L (3.4-5.0); Sodium 132 mmol/L (137-145)
[2024-04-07 07:00] VITALS: BP 125/85; PULSE 72; RESP 16; TEMP 36.8; O2SAT 95
--- NOTE | 2024-04-07 07:00 | PC.NURSE ---
Breast pump provided due to separation from infant. Instructions given on cleaning, care, usage, that there should be no pain, pumping schedule for milk production, collection, and storage of human milk. Patient was assessed for correct placement, flange size, to pump for comfort and nipple stretching/stimulation for adequate milk production every 3 hours (8 times in 24 hours) 1-2 times at night.
[2024-04-07] MEDS: POLYSACCHARIDE IRON COMPLEX 150 MG CAPSULE PO ×2 (07:01→17:40)
[2024-04-07] MEDS: SIMETHICONE 80 MG TAB.CHEW PO ×3 (07:01→17:38)
[2024-04-07] MEDS: MULTIVIT/MIN/PREN/FOL AC/IRON TABLET 1 TAB PO (09:10)
[2024-04-07] MEDS: DOCUSATE SODIUM 100 MG CAPSULE PO ×2 (09:10→17:39)
[2024-04-07 11:45] VITALS: BP 122/82; PULSE 82; RESP 16; TEMP 36.9; O2SAT 97
[2024-04-07] MEDS: HYDROcodone/acetaminophen (*CRX) 5-325 MG TABLET 1 TAB PO (12:01)
--- NOTE | 2024-04-07 12:37 | P.PNOB_ITS ---
OB - PN: Subj Subjective Date/time seen: 04/07/24 12:37 Narrative: Pain OK. Tolerating diet. Baby doing well in special care nursery. We communicated today through her nurse, who is fluent in [place]. OB - PN: Obj Data Labs 04/07/24 05:01 04/07/24 05:01 Labs: Laboratory Results - last 24 hr 04/06/24 04/06/24 04/07/24 10:20 11:12 05:01 WBC 9.7 RBC 3.26 L Hgb 9.8 L D Hct 29.5 L MCV 90.5 MCH 30.1 MCHC 33.2 RDW 17.2 H Plt Count 167 MPV 11.9 H Immature Gran % (Auto) 0.3 Neut % (Auto) 70.3 Lymph % (Auto) 21.5 [place] % (Auto) 7.7 Eos % (Auto) 0.0 Baso % (Auto) 0.2 Lymph # (Auto) 2.08 [place] # (Auto) 0.8 H Eos # (Auto) 0.0 Baso # (Auto) 0.0 Abs Immat Gran (auto) 0.03 Absolute Neuts (auto) 6.8 H Absolute Nucleated RBC 0.000 Nucleated RBC % 0.0 Sodium 132 L Potassium 3.7 Chloride 105 Carbon Dioxide 21 L Anion Gap 6 BUN 12 Creatinine 0.45 L Estim Creat Clear Calc 142 Estimated GFR > 60 Glucose 83 Uric Acid 5.8 Calcium 7.0 L Total Bilirubin 0.4 AST 50 H ALT 37 H Alkaline Phosphatase 189 H Total Protein 5.0 L Albumin 2.3 L Membranes Rupture Rom plus positive Blood Type O Positive Antibody Screen Negative OB - PN A/P Plan day: 1 Comments: A: POD#1, doing well. Likely gestational hypertension. Mildly elevated transaminases essentially stable. Not requiring any antihypertensives. P: Routine care. Recommended repeat liver enzyme testing in 1-2 weeks. Exam 2 Narrative: AVSS I/O OK ABD soft, nontender, fundus firm. Incision c/d/i. EXT nontender
--- NOTE | 2024-04-07 14:36 | WPDANLDPN2 ---
Anes-Prog Note L&D Date/Time: 04/07/24 14:36 Comfortable throughout: section Neuraxial method: spinal Epidural/Spinal procedure site: clean & non-tender Neuro status: Neuro function grossly intact. Cardiovascular status: normal Respiratory status: normal Airway patency: baseline Mental status: baseline Post-Op hydration status: normal Vital Signs: Last Vital Signs Temp 98.3 F 04/07/24 07:00 Pulse 72 04/07/24 07:00 Resp 16 04/07/24 07:00 BP 125/85 04/07/24 07:00 Pulse Ox 95 04/07/24 07:00 O2 Del Method Room Air 04/07/24 07:00 Pain score (VAS): 0 I/O: Intake & Output 04/06/24 04/07/24 04/07/24 23:59 07:59 15:59 Intake Total 639.6 Output Total 200 1900 Balance -200 -1900 639.6 Post-procedural complaints: none Patient feedback: Patient satisfied with anesthetic care.
--- NOTE | 2024-04-07 14:37 | WPDANLDNPN2 ---
Anes-Prog Note L&D-Neuraxial Date/Time: 04/07/24 14:37 Neuraxial medications: epidural PF morphine Opiod-related complaints: pruritis Patient feedback: Patient satisfied with post-operative pain management.
--- NOTE | 2024-04-07 15:00 | PC.NURSE ---
Infant is in level 2 nursery and the primary RN set the patient up with a hospital pump. She would like a [facility] referral and an insurance pump. Both were provided and faxed. Mom only speaks Sinhala and the primary RN has been managing care today. Primary RN aware that if there are any other questions or concerns, services are available as needed.
[2024-04-07 15:30] VITALS: BP 144/85
[2024-04-07] MEDS: IBUPROFEN 600 MG TABLET PO (19:47)
[2024-04-07 20:25] VITALS: BP 145/98; PULSE 100; RESP 16; TEMP 37.2; O2SAT 95
[2024-04-08 00:20] VITALS: BP 135/86; PULSE 90; RESP 16; TEMP 36.7; O2SAT 97
[2024-04-08] MEDS: HYDROcodone/acetaminophen (*CRX) 5-325 MG TABLET 1 TAB PO ×2 (00:21→04:37)
[2024-04-08 04:30] VITALS: BP 131/83; PULSE 85; RESP 16; TEMP 37; O2SAT 97
[2024-04-08] MEDS: ACETAMINOPHEN 325 MG TABLET 650 MG PO ×4 (06:00→23:45)
[2024-04-08] MEDS: IBUPROFEN 600 MG TABLET PO ×4 (06:00→23:45)
[2024-04-08] MEDS: HYDROcodone/acetaminophen (*CRX) 10-325 MG TABLET 1 TAB PO ×2 (07:19→15:20)
[2024-04-08] MEDS: SIMETHICONE 80 MG TAB.CHEW PO ×3 (07:20→15:20)
[2024-04-08] MEDS: DOCUSATE SODIUM 100 MG CAPSULE PO ×2 (07:20→15:20)
[2024-04-08] MEDS: MULTIVIT/MIN/PREN/FOL AC/IRON TABLET 1 TAB PO (07:20)
[2024-04-08] MEDS: LIDOCAINE 5% PATCH 1 PATCH TRANSDERM (07:20)
[2024-04-08 07:30] VITALS: BP 145/92; PULSE 89; RESP 16; TEMP 36.4; O2SAT 98
--- NOTE | 2024-04-08 08:43 | P.PNOB_ITS ---
OB - PN: Subj Subjective Date/time seen: 04/08/24 08:43 Narrative: Pain OK. Tolerating diet. OB - PN: Obj Data Labs 04/07/24 05:01 04/07/24 05:01 OB - PN A/P Plan day: 2 Comments: A: POD#2, doing well. P: Routine care. Exam 2 Narrative: AVSS I/O OK ABD soft, nontender, fundus firm. Incision c/d/i. EXT nontender
--- NOTE | 2024-04-08 10:07 | PCCCNOTE ---
Met with pt. who is guatemalan speaking only. Strata device at bedside. Pt. states this is her fourth child. Did not know she was sought care once she realized and then gave to child prematurely. Pt. was already provided with [facility] information for community resources. States that she is already current with [facility] services. Has equipment for baby at home. Plans to breastfeed and supplement with formula. Has support. Pt. to likely follow with her already established cco & president from her other children. Denies any other needs.
--- NOTE | 2024-04-08 11:30 | PC.NURSE ---
RN in room with Dr. Matthews, who was the document control supervisor for the patient who only speaks Belizean. We consulted with patient to assess needs related to . Patient had been pumping but was concerned that she was not getting very much milk. She had already been given a breast pump and was told again that there should be no pain, pumping schedule for milk production, collection, and storage of human milk. Patient was already assessed for correct placement, flange size, to pump for comfort and nipple stretching/stimulation for adequate milk production every 3 hours (8 times in 24 hours) 1-2 times at night. Parents are encouraged to record the pumping schedule on the feeding sheet.?Mother voiced understanding of the education shared along with mom/baby guide and the pump measurement, flange fit handout for additional resource information. Per Dr. Matthews, if mother would like to put baby to breast she may, but to only attempt or feed at the breast for 5 mins, so baby does not burn too many calories and lose too much weight. Reported to the Primary RN.
[2024-04-08 13:00] VITALS: BP 116/74; PULSE 93; RESP 16; TEMP 36.9; O2SAT 96
[2024-04-08] MEDS: POLYSACCHARIDE IRON COMPLEX 150 MG CAPSULE PO (15:20)
[2024-04-08 19:11] VITALS: BP 117/72; PULSE 102; RESP 16; TEMP 36.9; O2SAT 96
[2024-04-08 23:30] VITALS: BP 137/94; PULSE 101; RESP 14
[2024-04-09 03:13] VITALS: BP 116/76
[2024-04-09] MEDS: ACETAMINOPHEN 325 MG TABLET 650 MG PO ×3 (05:26→17:55)
[2024-04-09] MEDS: IBUPROFEN 600 MG TABLET PO ×3 (05:27→17:55)
[2024-04-09 07:47] VITALS: BP 136/93; PULSE 89; RESP 16; TEMP 36.8; O2SAT 98
[2024-04-09] MEDS: DOCUSATE SODIUM 100 MG CAPSULE PO ×2 (08:42→17:55)
[2024-04-09] MEDS: SIMETHICONE 80 MG TAB.CHEW PO ×2 (08:42→13:48)
[2024-04-09] MEDS: MULTIVIT/MIN/PREN/FOL AC/IRON TABLET 1 TAB PO (08:42)
[2024-04-09] MEDS: POLYSACCHARIDE IRON COMPLEX 150 MG CAPSULE PO ×2 (08:42→17:55)
[2024-04-09] MEDS: HYDROcodone/acetaminophen (*CRX) 5-325 MG TABLET 1 TAB PO ×2 (08:44→19:24)
--- NOTE | 2024-04-09 09:35 | PC.NURSE ---
Consulted with patient to assess needs related to , she had told her Primary RN that she would like assistance with latching baby. Mother is also using her breast pump and bottle feeding baby. Discussed with mother her successes, concerns and any questions she has. We reviewed working with the , supporting breast, protecting her nipples with an optimal deep latch, good positioning, and good hand washing. Encouraged understanding the benefits of skin to skin, responding to feeding cues, frequencies of feeding 8-12 times in 24 hours (approximately 2-3 hours), duration of feedings (currently technician assistant recommended only 5 mins at the breast so baby was not burning too many calories), milk production, intake/output feeding sheet and signs of adequate intake encouraging swallowing at the breast. Reviewed positioning and alignment, supporting breast, off-centered (asymmetrical latch) and leading with the chin with big, open, wide gape. Infant latched optimally to the [left] breast in [football] position. Education given to the mother of how to visualize the suckling (with good rocking jaw motion) swallows (dropping of the lower jaw) and how to listen for drinking at the breast (the ka sound). The infant was [able] to maintain latch without discomfort to mother. Nipple care reviewed with optimal latch, good positioning and using clean hands when touching her breast. Resources used to facilitate learning were used from the [visual handouts/ tool/mom and baby guide]. Mother voiced understanding of the education shared, to call for assistance if the infant does not latch or if there is discomfort with . Reported to the Primary RN.
[2024-04-09 12:13] VITALS: BP 131/90; PULSE 82; RESP 16; TEMP 36.7; O2SAT 99
--- NOTE | 2024-04-09 12:35 | P.PNOB_ITS ---
OB - PN: Subj Subjective Date/time seen: 04/09/24 12:35 Narrative: Pain OK. Tolerating diet. Baby needs to stay at least another day per peds. OB - PN: Obj Data Labs 04/07/24 05:01 04/07/24 05:01 OB - PN A/P Plan Comments: A: POD#3, doing well. P: Routine care. Exam 2 Narrative: AVSS I/O OK ABD soft, nontender, fundus firm. Incision c/d/i. EXT nontender
[2024-04-09 16:07] VITALS: BP 127/76; PULSE 96; RESP 22; TEMP 36.9; O2SAT 97
--- NOTE | 2024-04-09 16:30 | PC.NURSE ---
On 04/09/24, the [facility] student loan counselor, provided care and completed [employer] documentation on this patient. I have reviewed the student's documentation and agree with the findings.
[2024-04-09 19:15] VITALS: BP 136/86; PULSE 95; RESP 20; TEMP 36.8; O2SAT 98
[2024-04-10 00:10] VITALS: BP 133/96; PULSE 91; RESP 20; O2SAT 99
[2024-04-10] MEDS: ACETAMINOPHEN 325 MG TABLET 650 MG PO ×2 (00:10→06:34)
[2024-04-10] MEDS: IBUPROFEN 600 MG TABLET PO ×2 (00:10→06:34)
[2024-04-10] MEDS: HYDROcodone/acetaminophen (*CRX) 5-325 MG TABLET 1 TAB PO ×2 (01:10→05:00)
[2024-04-10 05:00] VITALS: BP 118/80; PULSE 94; RESP 20; O2SAT 98
[2024-04-10 06:36] VITALS: BP 121/86; PULSE 91; RESP 21; TEMP 35.8; O2SAT 96
[2024-04-10 06:44] VITALS: TEMP 37.1
[2024-04-10] MEDS: MULTIVIT/MIN/PREN/FOL AC/IRON TABLET 1 TAB PO (08:37)
[2024-04-10] MEDS: DOCUSATE SODIUM 100 MG CAPSULE PO (08:37)
[2024-04-10] MEDS: POLYSACCHARIDE IRON COMPLEX 150 MG CAPSULE PO (08:37)
[2024-04-10] MEDS: SIMETHICONE 80 MG TAB.CHEW PO (08:37)
[2024-04-10] MEDS: INFLUENZA TRIVALENT VACCINE 45 MCG/0.5 ML SYRINGE IM (08:38)
--- NOTE | 2024-04-10 11:30 | PC.NURSE ---
Discharge feeding plan entered on baby. Reviewed by Primary RN at discharge due to language barrier. No further needs identified.
--- NOTE | 2024-04-10 11:45 | PC.NURSE ---
This RN has reviewed and verified student nurse Chari Wakefield's charting for this patient.
[2024-04-11 08:40] VITALS: BP 134/70; PULSE 93; RESP 18; TEMP 37.1; O2SAT 100
== END 2024-04-10 12:10 | disposition home or self-care (01) | DRG 540 ==
LOC: ANHLDR 14:49 → ANHOB2 17:01
PROVIDERS: Admitting Provider Obstetrics & Gynecology; Visit Provider Obstetrics & Gynecology
PROC: 10D00Z1 Extraction of Products of Conception, Low, Open Approach (ICD-10-PCS; CPT 59514; principal; 2024-04-06 13:30)
DX: O34.219 Maternal care for unspecified type scar from previous cesarean delivery (principal); O24.420 Gestational diabetes mellitus in childbirth, diet controlled; O99.824 Streptococcus B carrier state complicating childbirth; O42.90 Premature rupture of membranes, unspecified as to length of time between rupture and onset of labor, unspecified weeks of gestation; O13.4 Gestational [pregnancy-induced] hypertension without significant proteinuria, complicating childbirth; Z3A.35 35 weeks gestation of pregnancy; Z37.0 Single live birth; Z23 Encounter for immunization
CPT/HCPCS: 36415; 80053; 82570; 84112; 84156; 84550; 85025; 86592; 86703; 86850; 86900; 86901; 88307; 90471; 90656; A9270; G0008; G0432; J0456; J0690; J1200; J1720; J1885; J1940; J2270; J2274; J2371; J2405; J2590; J3480; J7040; J7120

== ENCOUNTER 2024-12-04 17:51 | Emergency (ER) | payer OTHER, SELFPAY ==
--- NOTE | ~2024-12-04 | CT_ITS ---
EXAMINATION: CT abdomen pelvis w con DATE: 12/04/2024 20:53 INDICATION: Left lower quadrant abdominal pain TECHNIQUE: Computed tomography (CT) of the abdomen and pelvis was performed with intravenous contrast. The dose-length product was 569.99 mGy-cm. Automated exposure control and iterative reconstruction technique were employed. COMPARISON: None. FINDINGS: There is mild uncomplicated diverticulitis of the descending colon. Trace free fluid in the pelvis. Nonobstructive bowel gas pattern. Lung bases unremarkable. Heart size normal. No significant pleural or pericardial effusion. No abnormal pelvic masses. Fatty infiltration of the liver. The spleen, pancreas, adrenal glands and kidneys are unremarkable. IMPRESSION: 1. Acute uncomplicated diverticulitis of the descending colon. Reviewed, dictated and finalized at location O.
[2024-12-04 18:17] VITALS: BP 117/72; PULSE 98; RESP 17; TEMP 36.7; O2SAT 100
--- NOTE | 2024-12-04 18:39 | ED.GENADULT ---
HPI - General Adult General Chief complaint: Unspecified <Chari Goyal PA-C - Last Filed: 12/07/24 09:10> Stated complaint: unspecified <Chari Goyal PA-C - Last Filed: 12/07/24 09:10> Time Seen by Provider: 12/04/24 18:39 <Chari Goyal PA-C - Last Filed: 12/07/24 09:10> Focused HPI: This is a 29 year old female that presents to the ER for lower abdominal pain, nausea. Ongoing since yesterday. GENERAL: Well-appearing, well-nourished, and in no acute distress. HEAD: Normocephalic, atraumatic. CHEST: Clear to auscultation. ?No respiratory distress. HEART: Regular rate and rhythm.? NEURO: ?Alert and oriented x3. Patient screened in triage and initial orders placed.? ?Additional care and disposition to be based upon?diagnostic testing and treatment. <Chari Goyal PA-C - Last Filed: 12/07/24 09:10> Focused HPI: This is a 29 year old female that presents to the ER for lower abdominal pain, nausea. Ongoing since yesterday. GENERAL: Well-appearing, well-nourished, and in no acute distress. HEAD: Normocephalic, atraumatic. CHEST: Clear to auscultation. ?No respiratory distress. HEART: Regular rate and rhythm.? NEURO: ?Alert and oriented x3. Patient screened in triage and initial orders placed.? ?Additional care and disposition to be based upon?diagnostic testing and treatment. <Ashli Conte PA-C - Last Filed: 12/05/24 01:36> Source: patient <NIKHIL Murillo Last Filed: 12/05/24 01:36> Mode of arrival: ambulatory <Ashli Conte PA-C - Last Filed: 12/05/24 01:36> Limitations: no limitations <NIKHIL Murillo Last Filed: 12/05/24 01:36> History of Present Illness HPI narrative: Agree with above HPI. Patient is Palauan-speaking. [employer] income auditor was utilized for assistance with translation. Reports pain began yesterday but became worse today. It is worse with eating. Has not taken anything for pain. Denies fevers, diarrhea, constipation. <Ashli Conte PA-C - Last Filed: 12/05/24 01:36> Related Data Allergies/adverse reactions: Allergies Allergy/AdvReac Type Severity Reaction Status Date / Time cefazolin (From [facility]) Allergy Severe Difficulty Verified 12/04/24 19:35 Breathing <Chari Goyal PA-C - Last Filed: 12/07/24 09:10> Review of Systems Review of Systems: All systems reviewed & are unremarkable except as noted in HPI. <Ashli Conte PA-C - Last Filed: 12/05/24 01:36> All systems reviewed & are unremarkable except as noted in HPI and below <Ashli Conte PA-C - Last Filed: 12/05/24 01:36> [facility] Past Medical History Medical History: Medical History Diabetes Preeclampsia History of premature delivery x2 births (one twins, one brewer) History of twin in prior <Chari Goyal PA-C - Last Filed: 12/07/24 09:10> Surgical History Surgical History: Surgical History History of delivery x2 <Chari Goyal PA-C - Last Filed: 12/07/24 09:10> Social History Social History: Social History Social History: Palauan speaking Smoking status: Never smoker Substance use: never Do You Feel Safe in your Home?: Yes Lack of Transportation: No Lack of Food: Sometimes True Current Housing: I Have Housing Concerned About Future Housing: No Difficulty Paying Gas/Electric Bills: No Difficulty Paying for Meds: No Currently Unemployed: YES Education: Grade School Difficulty w/ Childcare or Family Care: No Living arrangements: with family Spiritual care concerns: No <Chari Goyal PA-C - Last Filed: 12/07/24 09:10> Exam Narrative: GENERAL: Mildly uncomfortable appearing, well-nourished, non-toxic, in no acute distress. HEAD: Normocephalic, atraumatic. RESPIRATORY: Airway patent, respirations nonlabored. Clear to auscultation bilaterally, no rales, rhonchi, wheezing. CARDIOVASCULAR: Regular rate and rhythm without murmurs, rubs, or gallops. ABDOMINAL: Soft, mild diffuse tenderness throughout bilateral lower abdomen, worst in LLQ, no rebound, nondistended. Normoactive BS. MUSCULOSKELETAL: Moves all extremities. No gross deformities. SKIN: Warm, dry, normal color. NEURO: A&O X3. Speech clear. Cranial nerves II-XII grossly intact. Steady gait. No ataxic movements. PSYCHIATRIC: Appropriate mood and affect. Normal interaction. <NIKHIL Murillo Last Filed: 12/05/24 01:36> Course Vital Signs Vital signs: Vital Signs Temperature 98.1 F 12/04/24 18:17 Pulse Rate 98 12/04/24 18:17 Respiratory Rate 17 12/04/24 18:17 Blood Pressure 117/72 12/04/24 18:17 Pulse Oximetry 100 12/04/24 18:17 Temperature 98.1 F 12/04/24 18:17 Pulse Rate 82 12/04/24 22:07 Respiratory Rate 20 12/04/24 22:07 Blood Pressure 127/77 12/04/24 22:07 Pulse Oximetry 97 12/04/24 22:07 <NIKHIL Petit Last Filed: 12/07/24 09:10> Vital Signs Temperature 98.1 F 12/04/24 18:17 Pulse Rate 98 12/04/24 18:17 Respiratory Rate 17 12/04/24 18:17 Blood Pressure 117/72 12/04/24 18:17 Pulse Oximetry 100 12/04/24 18:17 Temperature 98.1 F 12/04/24 18:17 Pulse Rate 82 12/04/24 22:07 Respiratory Rate 20 12/04/24 22:07 Blood Pressure 127/77 12/04/24 22:07 Pulse Oximetry 97 12/04/24 22:07 <NIKHIL Murillo Last Filed: 12/05/24 01:36> Medical Decision Making MDM Narrative Medical decision making narrative: Patient presented to ED with left sided abdominal pain. Began yesterday, became worse today. Associated with nausea. Vital signs stable upon arrival. Patient is afebrile. Cbc without leukocytosis. Very mild anemia. CMP with stable electrolytes, stable kidney function. Mild transaminitis noted, however this appears similar to previous records. Normal lipase. Normal bilirubin. UA is clear. Urine is negative. CT scan of abd/pelvis obtained and showing findings consistent with acute uncomplicated diverticulitis of descending colon. No abscess or perforation. Discussed lab and imaging findings with patient. She is feeling improved with supportive therapy. Feel she is safe for discharge home on oral antibiotics to treat for diverticulitis. Given 1st dose of Cipro and Flagyl in the ED. will also prescribe pain medication for home. Discussed dietary modifications, recommended follow-up with PCP/GI for colonoscopy in the future. Given return precautions. Patient discharged in stable condition. <Ashli Conte PA-C - Last Filed: 12/05/24 01:36> Medical Records Medical records reviewed: Yes I reviewed the external patient's medical records. <Ashli Conte PA-C - Last Filed: 12/05/24 01:36> Vital Signs Vital Signs: Vital Signs Temperature 98.1 F 12/04/24 18:17 Pulse Rate 98 12/04/24 18:17 Respiratory Rate 17 12/04/24 18:17 Blood Pressure 117/72 12/04/24 18:17 Pulse Oximetry 100 12/04/24 18:17 Temperature 98.1 F 12/04/24 18:17 Pulse Rate 82 12/04/24 22:07 Respiratory Rate 20 12/04/24 22:07 Blood Pressure 127/77 12/04/24 22:07 Pulse Oximetry 97 12/04/24 22:07 <Chari Goyal PA-C - Last Filed: 12/07/24 09:10> Vital Signs Temperature 98.1 F 12/04/24 18:17 Pulse Rate 98 12/04/24 18:17 Respiratory Rate 17 12/04/24 18:17 Blood Pressure 117/72 12/04/24 18:17 Pulse Oximetry 100 12/04/24 18:17 Temperature 98.1 F 12/04/24 18:17 Pulse Rate 82 12/04/24 22:07 Respiratory Rate 20 12/04/24 22:07 Blood Pressure 127/77 12/04/24 22:07 Pulse Oximetry 97 12/04/24 22:07 <Ashli Conte PA-C - Last Filed: 12/05/24 01:36> Lab Data Lab results reviewed: Yes I reviewed the patient's lab results. <Ashli Conte PA-C - Last Filed: 12/05/24 01:36> Result diagrams: 12/04/24 19:48 12/04/24 19:48 <Chari Goyal PA-C - Last Filed: 12/07/24 09:10> Labs: Lab Results 12/04/24 12/04/24 Range/Units 19:48 19:56 WBC 9.0 (4.5-10.0) K/mm3 RBC 4.08 L (4.2-5.4) M/mm3 Hgb 11.7 L (12.0-15.0) g/dL Hct 35.4 L (37.0-47.0) % MCV 86.8 (80-100) fl MCH 28.7 (26-34) pg MCHC 33.1 (32-36) g/dl RDW 13.6 (11.5-14.5) % Plt Count 285 D (150-375) k/mm3 MPV 10.3 (7.4-10.4) fl Immature Gran % (Auto) 0.3 (0-0.5) % Neut % (Auto) 56.1 (45.5-73.1) % Lymph % (Auto) 32.1 (18.3-44.2) % [place] % (Auto) 7.5 (2.6-8.5) % Eos % (Auto) 3.6 (0-4.4) % Baso % (Auto) 0.4 (0.2-1.2) % Lymph # (Auto) 2.88 (0.9-3.2) K/mm3 [place] # (Auto) 0.7 H (0.1-0.6) K/mm3 Eos # (Auto) 0.3 (0-0.3) K/mm3 Baso # (Auto) 0.0 (0.0-0.1) K/mm3 Abs Immat Gran (auto) 0.03 (0.00-0.031) K/mm3 Absolute Neuts (auto) 5.0 (1.3-6.7) K/mm3 Absolute Nucleated RBC 0.000 (0.0-0.012) K/mm3 Nucleated RBC % 0.0 (0.0-0.2) % Sodium 137 (137-145) mmol/L Potassium 3.8 (3.4-5.0) mmol/L Chloride 105 (98-107) mmol/L Carbon Dioxide 22 (22-30) mmol/L Anion Gap 10 (4-12) mmol/L BUN 9 (7-17) mg/dL Creatinine 0.44 L (0.7-1.0) mg/dL Estim Creat Clear Calc Not Reportable Estimated GFR > 60 (59 - ) Glucose 111 H (65-110) mg/dL Calcium 8.1 L (8.4-10.2) mg/dL Total Bilirubin 0.3 (0.2-1.3) mg/dL AST 74 H (14-36) U/L ALT 92 H (6-35) U/L Alkaline Phosphatase 162 H (38-126) U/L Total Protein 7.8 (6.3-8.2) g/dL Albumin 4.2 (3.5-5.1) g/dL Lipase 51 (23-300) U/L Urine Color Yellow (Yellow) Urine Appearance Clear (Clear) Urine pH 7.0 (5.0-9.0) Ur Specific [place] 1.019 (1.001-1.035) Urine Protein Negative (Negative) mg/dL Urine Glucose (UA) Negative (Negative) mg/dL Urine Ketones Negative (Negative) mg/dL Ur Blood (Man) Negative (Negative) Urine Nitrate Negative (Negative) Urine Bilirubin Negative (Negative) Urine Urobilinogen 1.0 (<2.0) mg/dL Leukocyte Esterase Rfl Negative (Negative) TANA/UL POC Urine HCG, Qual Negative (Negative) <Chari Goyal PA-C - Last Filed: 12/07/24 09:10> Lab Results 12/04/24 12/04/24 Range/Units 19:48 19:56 WBC 9.0 (4.5-10.0) K/mm3 RBC 4.08 L (4.2-5.4) M/mm3 Hgb 11.7 L (12.0-15.0) g/dL Hct 35.4 L (37.0-47.0) % MCV 86.8 (80-100) fl MCH 28.7 (26-34) pg MCHC 33.1 (32-36) g/dl RDW 13.6 (11.5-14.5) % Plt Count 285 D (150-375) k/mm3 MPV 10.3 (7.4-10.4) fl Immature Gran % (Auto) 0.3 (0-0.5) % Neut % (Auto) 56.1 (45.5-73.1) % Lymph % (Auto) 32.1 (18.3-44.2) % [place] % (Auto) 7.5 (2.6-8.5) % Eos % (Auto) 3.6 (0-4.4) % Baso % (Auto) 0.4 (0.2-1.2) % Lymph # (Auto) 2.88 (0.9-3.2) K/mm3 [place] # (Auto) 0.7 H (0.1-0.6) K/mm3 Eos # (Auto) 0.3 (0-0.3) K/mm3 Baso # (Auto) 0.0 (0.0-0.1) K/mm3 Abs Immat Gran (auto) 0.03 (0.00-0.031) K/mm3 Absolute Neuts (auto) 5.0 (1.3-6.7) K/mm3 Absolute Nucleated RBC 0.000 (0.0-0.012) K/mm3 Nucleated RBC % 0.0 (0.0-0.2) % Sodium 137 (137-145) mmol/L Potassium 3.8 (3.4-5.0) mmol/L Chloride 105 (98-107) mmol/L Carbon Dioxide 22 (22-30) mmol/L Anion Gap 10 (4-12) mmol/L BUN 9 (7-17) mg/dL Creatinine 0.44 L (0.7-1.0) mg/dL Estim Creat Clear Calc Not Reportable Estimated GFR > 60 (59 - ) Glucose 111 H (65-110) mg/dL Calcium 8.1 L (8.4-10.2) mg/dL Total Bilirubin 0.3 (0.2-1.3) mg/dL AST 74 H (14-36) U/L ALT 92 H (6-35) U/L Alkaline Phosphatase 162 H (38-126) U/L Total Protein 7.8 (6.3-8.2) g/dL Albumin 4.2 (3.5-5.1) g/dL Lipase 51 (23-300) U/L Urine Color Yellow (Yellow) Urine Appearance Clear (Clear) Urine pH 7.0 (5.0-9.0) Ur Specific [place] 1.019 (1.001-1.035) Urine Protein Negative (Negative) mg/dL Urine Glucose (UA) Negative (Negative) mg/dL Urine Ketones Negative (Negative) mg/dL Ur Blood (Man) Negative (Negative) Urine Nitrate Negative (Negative) Urine Bilirubin Negative (Negative) Urine Urobilinogen 1.0 (<2.0) mg/dL Leukocyte Esterase Rfl Negative (Negative) TANA/UL POC Urine HCG, Qual Negative (Negative) <Ashli Conte PA-C - Last Filed: 12/05/24 01:36> Imaging Data Attestation: I personally reviewed and interpreted this imaging study as follows: <Ashli Conte PA-C - Last Filed: 12/05/24 01:36> Radiologist's impression: ITS Impressions Abdomen/Pelvis CT 12/04/24 21:17 IMPRESSION: 1. Acute uncomplicated diverticulitis of the descending colon. <NIKHIL Murillo Last Filed: 12/05/24 01:36> Critical Care Time Critical Care Time Critical Care Time: No <NIKHIL Petit Last Filed: 12/07/24 09:10> Discharge Plan Discharge Clinical Impression: Diverticulitis large intestine Qualifiers: Diverticulitis bleeding: with bleeding Diverticulitis complication: without perforation or abscess Qualified Code(s): K57.33 - Diverticulitis of large intestine without perforation or abscess with bleeding <NIKHIL Petit Last Filed: 12/07/24 09:10> Patient Disposition: Home <Chari Goyal PA-C - Last Filed: 12/07/24 09:10> Condition: Stable <NIKHIL Petit Last Filed: 12/07/24 09:10> Instructions: Antibiotic Form, Diverticulitis (ED), Diverticulitis Diet (ED) <Chari Goyal PA-C - Last Filed: 12/07/24 09:10> Additional Instructions: Take antibiotics as prescribed for diverticulitis. Continue Tylenol, ibuprofen as needed for pain. [place] as needed for more severe pain. Increase fluid intake. Recommend electrolyte rich fluids, gatorade, pedialyte, body armour. Recommend clear liquids or bland diet until symptoms improve, such as bananas, rice, applesauce, toast, or crackers. Follow up with your primary care doctor and GI for further evaluation. Return to the ED if you experience worsening or severe symptoms, unable to keep down food or drink, severe pain, fevers, rectal bleeding, vomiting blood, or any other symptoms of concern. <Chari Goyal PA-C - Last Filed: 12/07/24 09:10> Patient Language: Palauan <Chari Goyal PA-C - Last Filed: 12/07/24 09:10> Prescriptions: New hydrocodone-acetaminophen 5-325 mg tablet 1 tablet PO Q6H PRN (Reason: pain) Qty: 10 0RF metronidazole 500 mg tablet 500 mg PO Q8H 7 Days Qty: 21 0RF ciprofloxacin HCl 500 mg tablet 500 mg PO Q12H 7 Days Qty: 14 0RF No Action hydrocodone-acetaminophen 5-325 mg tablet 1 - 2 tablet PO Q6H PRN (Reason: pain) Qty: 30 0RF ibuprofen 600 mg tablet 600 mg PO Q6H PRN (Reason: cramps) Qty: 30 0RF ferrous sulfate 325 mg (65 mg iron) tablet 325 mg PO DAILY Qty: 30 0RF acetaminophen 500 mg capsule 1,000 mg PO Q6H PRN (Reason: pain) Qty: 30 0RF vit-iron fum-folic ac [ Vitamin with Minerals] 28 mg iron- 800 mcg tablet 1 tablet PO DAILY Qty: 30 0RF docusate sodium [Colace] 100 mg capsule 100 mg PO DAILY PRN (Reason: constipation) Qty: 14 0RF <Chari Goyal PA-C - Last Filed: 12/07/24 09:10> Follow-up/Referrals: PHYSICIAN,INSURANCE SOLICITOR [Primary Care Provider, Internal Medicine] Tanner Duong MD [Physician, Gastroenterology] Referral Note: Antwon Hernandez MD [Physician, Family Practice] Referral Note: PRIMARY CARE <Chari Goyal PA-C - Last Filed: 12/07/24 09:10> Time of Disposition: 21:44 <Chari Goyal PA-C - Last Filed: 12/07/24 09:10> 21:44 <Ashli Conte PA-C - Last Filed: 12/05/24 01:36>
[2024-12-04 19:33] VITALS: RESP 18
[2024-12-04 19:57] LABS: Add Urine Microscopic? NO; Appearance Urine Clear (Clear); Glucose Urine UA Negative (Negative); Leukocyte Esterase Ur Negative LEU/UL (Negative); Nitrate Urine Negative (Negative); Specific Grav Ur 1.019 (1.001-1.035)
[2024-12-04 19:58] LABS: BEDSIDEPREGUCG Negative (Negative)
[2024-12-04 19:58] LABS: Hematocrit 35.4 % (37.0-47.0); Hemoglobin 11.7 g/dL (12.0-15.0); Immature Granulocyte Percent A 0.3 % (0-0.5); Lymphocytes Absolute Auto 2.88 K/mm3 (0.9-3.2); Mean Corpuscular HGB Conc 33.1 g/dl (32-36); Mean Corpuscular Hemoglobin 28.7 pg (26-34); Mean Corpuscular Volume 86.8 fl (80-100); Nucleated Red Blood Cells Absolute Auto 0.000 K/mm3 (0.0-0.012); Nucleated Red Blood Cells Perc 0.0 % (0.0-0.2); Platelet Count Result 285 k/mm3 (150-375); Red Blood Count 4.08 M/mm3 (4.2-5.4); White Blood Count 9.0 K/mm3 (4.5-10.0)
[2024-12-04 20:11] LABS: Alanine Aminotransferase 92 U/L (6-35); Albumin Level 4.2 g/dL (3.5-5.1); Alkaline Phosphatase 162 U/L (38-126); Anion Gap 10 mmol/L (4-12); Aspartate Amino Transferase 74 U/L (14-36); Bilirubin,Total 0.3 mg/dL (0.2-1.3); Blood Urea Nitrogen 9 mg/dL (7-17); Calcium 8.1 mg/dL (8.4-10.2); Carbon Dioxide 22 mmol/L (22-30); Chloride 105 mmol/L (98-107); Estimated Glomerular Filt Rate > 60; Glucose 111 mg/dL (65-110); Lipase 51 U/L (23-300); Potassium 3.8 mmol/L (3.4-5.0); Sodium 137 mmol/L (137-145); Total Protein 7.8 g/dL (6.3-8.2)
--- OUTSIDE RECORDS SUMMARY | 2024-12-04 20:34 | XMS_ITS ---
Author Organization [facility] Address [address] [place] [address] Care Team Providers Care Nurse Unit Manager Name Role Phone Nathan Broderick Primary Care Provider [phone] [facility]ly [facility] Status:Enrolled (Active) Start date:06/05/2024 Enrollment date:06/05/2024 Related social drivers of health:Intimate Partner Violence, Social Connections, Alcohol Use, Tobacco Use, Financial Resource Strain,Depression, Stress, Physical Activity, Food Insecurity, Transportation Needs, Housing Stability, Utilities Related service episodes:[facility] Service Episode (Closed) Continued Care and Services Coordination
--- OUTSIDE RECORDS SUMMARY | 2024-12-04 20:34 | XMS_ITS | Clinical Summary ---
Author Organization [facility] Address [address] [place] [address] Care Team Providers Care Catering Truck Operator Name Role Phone DavieHughie Primary Care Provider [phone] Social History Tobacco Use Types Packs/Day Years Used Date Smoking Tobacco: Never Assessed [facility] Utilities Answer Date Recorded In the past 12 months has [employer], gas, oil, or water [employer] threatened to shut off services in your home? No 06/05/2024 Social Connection and Isolation Panel Answer Date Recorded In a typical week, how many times do you talk on the phone with family, friends, or neighbors? More than three times a week 06/05/2024 How often do you get togethe r with friends or relatives? Once a week 06/05/2024 How often do you attend chur or alevism services? Never 06/05/2024 Do you belong to any clubs o r organizations such as mormon groups, unions, fraternal or athletic groups, or school groups? No 06/05/2024 How often do you attend meet ings of the clubs or organizations you belong to? Never 06/05/2024 Are you , , di vorced, , never , or living with a partner? 06/05/2024 AUDIT-C Answer Date Recorded Q1: How often do you have a drink containing alcohol? Never 06/05/2024 Q2: How many drinks containi ng alcohol do you have on a typical day when you are drinking? Patient does not drink Q3: How often do you have si x or more drinks on one occasion? Never 06/05/2024 Overall Financial Resource Strain (CARDIA) Answe r Date Recorded How hard is it for you to pa y for the very basics like food, housing, medical care, and heating? Somewhat hard 06/05/2024 [facility] Occupat ional Health - Occupational Stress Questionnaire Answer Date Recorded Do you feel stress - tense, restless, nervous, or anxious, or unable to sleep at night because your mind is troubled all the time - these days? To some extent 06/05/2024 Exercise Vital Sign Answer Date Recorde d On average, how many days pe r week do you engage in moderate to strenuous exercise (like a brisk walk)? 7 days 06/05/2024 On average, how many minutes do you engage in exercise at this level? 30 min 06/05/2024 Hunger Vital Sign Answer Date Recorded Within the past 12 months, y ou worried that your food would run out before you got the money to buy more. Sometimes true Within the past 12 months, t he food you bought just didn't last and you didn't have money to get more. Sometimes true PRAPARE - Transportation Answer Date Re corded In the past 12 months, has l ack of transportation kept you from medical appointments or from getting medications? No 05/10 In the past 12 months, has l ack of transportation kept you from meetings, work, or from getting things needed for daily living? No 06/05/2024 Housing Stability Vital Sign Answer Dane e Recorded In the last 12 months, was t here a time when you were not able to pay the mortgage or rent on time? Yes 06/05/2024 In the past 12 months, how m any times have you moved where you were living? 0 06/05/2024 At any time in the past 12 m [facility], were you homeless or living in a long-term (including now)? 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 Gender Identity Not on file Sexual Orientation Not on file Plan of Treatment Health Maintenance Due Date Last Done Comments Hepatitis C Virus (HCV) Screening 1993 Hepatitis B Immunization (1 of 3 - 19+ 3-dose series) 2012 Pap Smear 2014 Human Papillomavirus (HPV) Immunization (1 - 3-dose SCDM series) 2020 Cervical Cancer Screening (CCS) 08/15/2023 HPV/Cotest 08/15/2023 Influenza Immunization (#1) 2024 SARS-COV-2 Immunization ( season) 2024 07/13/2020, 06/15/2020 Respiratory Syncytial Virus (RSV) Immunization [...] on patient's age to complete this topic Interventions Community Resource Recommendations Community Resource Services Recommended Domains Addressed Status Status Reason/Outcome Date/Time Community [facility] Emergency Food Food Insecurity Recommended 06/05/2024 1:14 PM CDT [facility] Food Pantry Food Insecurity Recommended 06/05/2024 1:14 PM CDT Marla Reyeses [facility] Food Pantry, Help Understanding Government Programs, Nutrition Education Financial Resource Strain, Food Insecurity Recommended 06/05/2024 1:14 PM CDT [place] Department of Human Services ([facility]) - Temporary Assistance for Needy Families (TANF) Financial Assistance, Government Benefits Financial Resource Strain Recommended 06/05/2024 1:14 PM CDT from Last 12 Months Insurance [address] [place] [address] [place] Care Teams Catering Truck Operator Relationship Specialty Start Date End Date Nathan Broderick 4 [facility] , [address] [address] PCP - General Obstetrics & Gynecology 03/12/24
[2024-12-04] MEDS: ONDANSETRON INJ 4 MG/2 ML VIAL IV PUSH (20:40)
[2024-12-04] MEDS: MORPHINE SULFATE (*CRX) 4 MG/ML INJ IV PUSH (20:40)
[2024-12-04] MEDS: FAMOTIDINE 20 MG/2 ML VIAL IV PUSH (20:41)
[2024-12-04] MEDS: CIPROFLOXACIN 500 MG TAB PO (21:54)
[2024-12-04 22:07] VITALS: BP 127/77; PULSE 82; RESP 20; O2SAT 97
== END 2024-12-04 22:02 | disposition home or self-care (01) ==
PROVIDERS: Physician Assistant; Emergency Provider Physician Assistant
DX: K57.33 Diverticulitis of large intestine without perforation or abscess with bleeding (principal); E11.9 Type 2 diabetes mellitus without complications
CPT/HCPCS: 36415; 74177; 80053; 81003; 81025; 83690; 85025; 96374; 96375; 99284; A9270; J2270; J2405; Q9967

== ENCOUNTER 2025-03-10 00:44 | Day surgery (SDC) | payer OTHER, SELFPAY ==
--- NOTE | 2025-01-22 14:50 | SUR.PREOP ---
When doing patient's pre operative phone call she stated that she was currently on antibiotics for diverticulitis. Her last dose was 01/23/2025. This was reported to Dr. Woodall who requested that patient be rescheduled for 6 weeks out from her last dose of antibiotic.
[2025-02-24 13:07] VITALS: BMI 34.9
--- NOTE | 2025-02-24 13:08 | PC.NURSE ---
Spoke with patient through interpretive services. She denies any diarrhea, constipation, fever or blood in stool. She states she still has some pain in same area as before but it is mild and only occassionaly-not severe like before. She plans to proceed with colonoscopy. I reviewed instructions- she did not received them so I confirmed her email and will send a icelandic translated version to her. We reviewed her times and where to come on the . 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
--- NOTE | 2025-02-24 13:13 | PC.NURSE ---
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
--- OUTSIDE RECORDS SUMMARY | 2025-03-10 00:46 | XMS_ITS | Clinical Summary ---
Author Organization [facility] Address [address] [place] [address] Care Team Providers Care Senior Education Specialist Name Role Phone DavieHughie Primary Care Provider [phone] Social History Tobacco Use Types Packs/Day Years Used Date Smoking Tobacco: Never Assessed [facility] Utilities Answer Date Recorded In the past 12 months has [employer]), gas, oil, or water [employer] threatened to shut off services in your [...] How often do you attend chur or bahai services? Never 06/05/2024 Do you belong to any clubs o r organizations such as moravian groups, unions, fraternal or athletic groups, or [...] medical care, and heating? Somewhat hard 06/05/2024 [facility] [place] of Occupat ional Health - Occupational Stress [...] any time in the past 12 m [facility], were you homeless or living in a custodial (including now)? 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 Gender Identity Not on file Sexual Orientation Not on file Plan of Treatment Health Maintenance Due Date Last Done Comments Hepatitis C Virus (HCV) Screening 1993 Varicella Immunization (1 of 2 - 13+ 2-dose series) 2006 Hepatitis B Immunization (1 of 3 - 19+ 3-dose series) 2012 Pap Smear 2014 Cervical Cancer Screening (CCS) 08/15/2023 HPV/Cotest 08/15/2023 Influenza Immunization (#1) 2024 SARS-COV-2 Immunization (3 - season) 2024 07/13/2020, 06/15/2020 Respiratory Syncytial Virus (RSV) Immunization (Adult) (1 - 1-dose 75+ series) 2068 TdaP Immunization Completed 02/11/2024 Human Papillomavirus (HPV) Immunization (No Doses Required) Completed Meningococcal Immunization (ACWY) Aged Out No longer [...] Recommended Domains Addressed Status Status Reason/Outcome Date/Time [facility] Emergency Food Food Insecurity Recommended 06/05/2024 1:14 PM CDT [facility] Food Pantry Food Insecurity Recommended 06/05/2024 1:14 PM CDT Marla Mou[facility] Food Pantry, Help Understanding Government Programs, Nutrition Education Financial Resource Strain, Food Insecurity Recommended 06/05/2024 1:14 PM CDT [place] [employer] ([facility]) - Temporary Assistance for Needy Families (TANF) Financial Assistance, Government Benefits Financial Resource Strain Recommended 06/05/2024 1:14 PM CDT from Last 12 Months Insurance MEDICAID [id number] Care Teams Senior Education Specialist Relationship Specialty Start Date End Date Nathan Broderick [address] [place] [address] , [address] [address] PCP - General Obstetrics & Gynecology 03/12/24
--- OUTSIDE RECORDS SUMMARY | 2025-03-10 00:46 | XMS_ITS ---
Author Organization [facility] Address [address] [place] [address] Care Team Providers Care Director Housekeeping Name Role Phone Nathan Broderick Primary Care Provider [phone] [facility] Status:Enrolled (Active) Program category:Social Drivers of Health/Community Resource Coordination Start date:06/05/2024 Enrollment date:06/05/2024 Related social drivers of health:Intimate Partner Violence, Social Connections, Alcohol Use, Tobacco Use, Financial Resource Strain,Depression, Stress, Physical Activity, Food Insecurity, Transportation Needs, Housing Stability, Utilities Related service episodes:[facility] Service Episode (Closed) Continued Care and Services Coordination
[2025-03-10 09:18] VITALS: BP 138/75; PULSE 82; RESP 18; TEMP 36.1; O2SAT 100; BMI 33.2
--- NOTE | 2025-03-10 09:19 | SUR.PREOP ---
Patient reports not taking any medications for prep. Last BM was yesterday, normal. Patient Account Analyst used, Sylvester #[id number]. Dr. Alcocer notified and procedure cancelled. Patient signed discharge orders and instructed to call office when ready to reschedule.
== END 2025-03-10 09:17 | disposition home or self-care (01) ==
PROVIDERS: Referring Provider Nurse Practitioner; Visit Provider Internal Medicine Gastroenterology
PROC: 0DJD8ZZ Inspection of Lower Intestinal Tract, Via Natural or Artificial Opening Endoscopic (ICD-10-PCS; CPT 45378; principal; 2025-03-10 10:00)
DX: K57.32 Diverticulitis of large intestine without perforation or abscess without bleeding (principal)
CPT/HCPCS: 99212; G0463